=== PATIENT | female | born 1955 | race Two or more races ===

== ENCOUNTER → 2016-06-27 | Outpatient (CLI) | payer MEDICARE, OTHER ==
[~2016-06-27] VITALS: Ht 165.1 cm; Wt 83.9 kg
[~2016-06-27] MED LIST: ALEN70SO OR; CARV6.2551 PO; FURO40TA4 PO; GABA-339 PO; IND25C PO; LISI2.5T47 PO; OMEP20CA5 OR; POTA10TA51 PO; PRAV20TA3 PO; TOPI50CA OR
[2016-06-27 11:15] VITALS: BP 120/72
[2016-06-27 16:47] LABS: Basophils # (auto) 0 uL; Basophils % (auto) 0.7 % (0.0-2.0); Eosinophils # (auto) 0.3 uL; Eosinophils % (auto) 4.3 % (0.0-7.0); Hematocrit 38.5 % (36.0-46.0); Hemoglobin 12.1 g/dL (12.2-16.2); Lymphocytes # (auto) 2.8 uL; Lymphocytes % (auto) 43.9 % (10.0-50.0); Mean Corpuscular Hemoglobin 29.1 pg (28.0-32.0); Mean Corpuscular Hgb Conc. 31.5 g/dL (32.0-36.0); Mean Corpuscular Volume 92.4 fL (80.0-100.0); Mean Platelet Volume 8.9 fL (7.4-10.4); Monocytes # (auto) 0.5 uL; Monocytes % (auto) 8.2 % (0.0-12.0); Neutrophils # (auto) 2.7 uL; Neutrophils % (auto) 42.9 % (37.0-80.0); Platelet Count (auto) 270 10^3/uL (140-450); Red Cell Distribution Width 14.6 % (11.6-16.0); White Blood Cell 6.3 10^3/uL (4.4-10.8)
[2016-06-27 17:10] LABS: INR 1.02 (0.9-1.15); Prothrombin Time 10.5 sec (9.37-12.3)
[2016-06-27 17:33] LABS: BUN/Creatinine Ratio 22.2; Calcium 9.1 mg/dL (8.5-10.1); Potassium 3.8 mmol/L (3.5-5.1)
== END | disposition home or self-care (01) ==
LOC: Rad HDHVI 10:54
PROVIDERS: ATTEND Internal Medicine Cardiovascular Disease
DX: I10 Essential (primary) hypertension (principal); D64.9 Anemia, unspecified; R79.1 Abnormal coagulation profile
CPT/HCPCS: 36415; 71020; 80048; 85025; 85610; 85730; 93005; G0463

== ENCOUNTER → 2016-09-21 | Outpatient (CLI) | payer MEDICARE, OTHER ==
[2016-09-21 12:13] LABS: Basophils # (auto) 0 uL; Basophils % (auto) 0.8 % (0.0-2.0); Eosinophils # (auto) 0.4 uL; Eosinophils % (auto) 6.7 % (0.0-7.0); Hemoglobin 12.7 g/dL (12.2-16.2); Lymphocytes # (auto) 2.2 uL; Mean Corpuscular Hemoglobin 29.8 pg (28.0-32.0); Mean Corpuscular Hgb Conc. 32.5 g/dL (32.0-36.0); Mean Corpuscular Volume 91.7 fL (80.0-100.0); Mean Platelet Volume 8.2 fL (7.4-10.4); Monocytes # (auto) 0.5 uL; Monocytes % (auto) 9.4 % (0.0-12.0); Neutrophils # (auto) 2.6 uL; Neutrophils % (auto) 45.1 % (37.0-80.0); Platelet Count (auto) 299 10^3/uL (140-450); White Blood Cell 5.8 10^3/uL (4.4-10.8)
[2016-09-21 12:41] LABS: Albumin 3.6 g/dL (3.4-5.0); BUN/Creatinine Ratio 17.2; Bilirubin, Direct 0.2 mg/dL (0-0.2); Bilirubin, Total 0.4 mg/dL (0.2-1.0); Calcium 9.1 mg/dL (8.5-10.1); Potassium 4.1 mmol/L (3.5-5.1); Total Protein 7.8 g/dL (6.4-8.2)
== END | disposition home or self-care (01) ==
LOC: Rad HDHVI 08:01
PROVIDERS: ATTEND Internal Medicine Cardiovascular Disease
DX: I10 Essential (primary) hypertension (principal); E78.00 Pure hypercholesterolemia, unspecified; K74.1 Hepatic sclerosis; E11.9 Type 2 diabetes mellitus without complications; E03.9 Hypothyroidism, unspecified; D64.9 Anemia, unspecified; E55.9 Vitamin D deficiency, unspecified
CPT/HCPCS: 36415; 80048; 80061; 80076; 82306; 83036; 84443; 85025; 93306

== ENCOUNTER → 2016-10-21 | Outpatient (CLI) | payer MEDICARE, OTHER ==
[~2016-10-21] VITALS: Ht 162.6 cm; Wt 83.0 kg
[~2016-10-21] MED LIST changes: -OMEP20CA5 OR; +OMEP20CA74 OR
== END | disposition home or self-care (01) ==
LOC: Rad HDHVI 08:21
PROVIDERS: ATTEND Internal Medicine Cardiovascular Disease
DX: I10 Essential (primary) hypertension (principal); I47.2 Ventricular tachycardia; Z95.0 Presence of cardiac pacemaker
CPT/HCPCS: 78452; 93017; 96374; A9500

== ENCOUNTER → 2017-03-20 | Outpatient (CLI) | payer MEDICARE, OTHER ==
[2017-03-20 13:06] LABS: Basophils # (auto) 0.1 uL; Basophils % (auto) 0.9 % (0.0-2.0); Eosinophils # (auto) 0.4 uL; Eosinophils % (auto) 6.5 % (0.0-7.0); Hematocrit 38.9 % (36.0-46.0); Hemoglobin 12.8 g/dL (12.2-16.2); Lymphocytes # (auto) 2.3 uL; Lymphocytes % (auto) 40.5 % (10.0-50.0); Mean Corpuscular Hemoglobin 30.5 pg (28.0-32.0); Mean Corpuscular Hgb Conc. 32.8 g/dL (32.0-36.0); Mean Corpuscular Volume 93.1 fL (80.0-100.0); Mean Platelet Volume 8.4 fL (6.9-10.8); Monocytes # (auto) 0.4 uL; Monocytes % (auto) 7.8 % (0.0-12.0); Neutrophils # (auto) 2.5 uL; Neutrophils % (auto) 44.3 % (37.0-80.0); Nucleated Red Blood Cells % 0.2 %; Platelet Count (auto) 261 10^3/uL (140-450); White Blood Cell 5.7 10^3/uL (4.4-10.8)
[2017-03-20 13:08] LABS: Urine Bilirubin Negative (Negative); Urine Blood Negative /uL (Negative); Urine Color Yellow (Yellow); Urine Glucose Normal (Normal); Urine Ketone Negative (Negative); Urine Nitrite Negative (Negative); Urine Urobilinogen Normal (Negative)
[2017-03-20 13:18] LABS: Temperature: 24.3 C (20.0-25.0)
[2017-03-20 13:27] LABS: Albumin 3.8 g/dL (3.4-5.0); BUN/Creatinine Ratio 16.3; Bilirubin, Direct 0.2 mg/dL (0-0.2); Bilirubin, Total 0.5 mg/dL (0.2-1.0); Calcium 9.3 mg/dL (8.5-10.1); Potassium 3.6 mmol/L (3.5-5.1)
== END | disposition home or self-care (01) ==
LOC: Rad HDHVI 08:47
PROVIDERS: ATTEND Internal Medicine Cardiovascular Disease
DX: E11.9 Type 2 diabetes mellitus without complications (principal); I50.42 Chronic combined systolic (congestive) and diastolic (congestive) heart failure; E78.00 Pure hypercholesterolemia, unspecified; K74.1 Hepatic sclerosis; E03.9 Hypothyroidism, unspecified; D64.9 Anemia, unspecified; E55.9 Vitamin D deficiency, unspecified; N39.0 Urinary tract infection, site not specified; D51.9 Vitamin B12 deficiency anemia, unspecified; E61.1 Iron deficiency
CPT/HCPCS: 36415; 80048; 80061; 80076; 81003; 82306; 82607; 82746; 83036; 83540; 83550; 84443; 85025; 93306

== ENCOUNTER → 2017-10-11 | Outpatient (CLI) | payer MEDICARE, OTHER ==
[~2017-10-11] MED LIST changes: +ALEN70TA55 PO; +GABA800T97 PO; +LISI-275 PO; +OMEP20TA PO; +TOPI1CAP22 OR; -TOPI50CA OR; +TOPI50TA53 PO
== END | disposition home or self-care (01) ==
LOC: Rad HDHVI 10:49
PROVIDERS: ATTEND Internal Medicine Cardiovascular Disease
DX: M19.012 Primary osteoarthritis, left shoulder (principal)
CPT/HCPCS: 73200

== ENCOUNTER → 2017-10-20 | Outpatient (CLI) | payer MEDICARE, OTHER | END | disposition home or self-care (01) | LOC: Rad HDHVI 14:54 | PROVIDERS: ATTEND Internal Medicine Cardiovascular Disease | DX: I25.5 Ischemic cardiomyopathy (principal); E03.9 Hypothyroidism, unspecified; I11.0 Hypertensive heart disease with heart failure; I50.23 Acute on chronic systolic (congestive) heart failure; I34.0 Nonrheumatic mitral (valve) insufficiency; E11.9 Type 2 diabetes mellitus without complications | CPT/HCPCS: 93306 ==

== ENCOUNTER → 2017-11-01 | Outpatient (CLI) | payer MEDICARE, OTHER ==
[2017-11-01 09:07] VITALS: BP 113/64
[2017-11-01 09:40] VITALS: BP 108/61
[2017-11-01 12:11] LABS: Basophils # (auto) 0 uL; Basophils % (auto) 0.5 % (0.0-2.0); Eosinophils # (auto) 0.1 uL; Eosinophils % (auto) 1.6 % (0.0-7.0); Hematocrit 38.5 % (36.0-46.0); Hemoglobin 12.8 g/dL (12.2-16.2); Lymphocytes # (auto) 2.8 uL; Lymphocytes % (auto) 33.1 % (10.0-50.0); Mean Corpuscular Hemoglobin 30.7 pg (28.0-32.0); Mean Corpuscular Hgb Conc. 33.1 g/dL (32.0-36.0); Mean Corpuscular Volume 92.7 fL (80.0-100.0); Monocytes # (auto) 0.7 uL; Monocytes % (auto) 8.7 % (0.0-12.0); Neutrophils # (auto) 4.7 uL; Neutrophils % (auto) 56.1 % (37.0-80.0); Nucleated Red Blood Cells % 0.2 %; Platelet Count (auto) 294 10^3/uL (140-450); Red Blood Cells 4.16 10^6/uL (4.0-5.20); Red Cell Distribution Width 14.4 % (11.8-14.3); White Blood Cell 8.4 10^3/uL (4.4-10.8)
[2017-11-01 12:16] LABS: BUN/Creatinine Ratio 18.8; Calcium 8.7 mg/dL (8.5-10.1); Potassium 3.5 mmol/L (3.5-5.1)
[2017-11-01 12:22] LABS: INR 0.95 (0.9-1.15); Partial Thromboplastin Time 28.2 sec (23.78-33.04); Prothrombin Time 10.2 sec (9.27-12.13)
== END | disposition home or self-care (01) ==
LOC: Rad HDHVI 08:55
PROVIDERS: ATTEND Internal Medicine Cardiovascular Disease
DX: Z01.818 Encounter for other preprocedural examination (principal); E03.9 Hypothyroidism, unspecified; I11.0 Hypertensive heart disease with heart failure; I50.9 Heart failure, unspecified; E11.9 Type 2 diabetes mellitus without complications
CPT/HCPCS: 36415; 71046; 80048; 85025; 85610; 85730; 93005; G0463

== ENCOUNTER 2017-11-02 08:53 | Day surgery (SDC) | payer MEDICARE, OTHER ==
[~2017-11-02] VITALS: Ht 165.1 cm; Wt 84.0 kg
[~2017-11-02 08:53] MED LIST changes: -ALEN70SO OR; -GABA-339 PO; -LISI2.5T47 PO; -OMEP20CA74 OR; -TOPI1CAP22 OR
[2017-11-02] MEDS ORDERED: NALOXONE HCL 0.4 MG/ML VIAL IV ONE (09:30)
[2017-11-02] MEDS ORDERED: fentaNYL CITRATE 100 MCG/2 ML VL IV ONE (09:30)
[2017-11-02] MEDS ORDERED: MIDAZOLAM HCL 1MG/1ML-2 ML VIAL IV ONE (09:30)
[2017-11-02] MEDS ORDERED: FLUMAZENIL 0.1 MG/ML INJ 10ML MDV IV ONE (09:30)
[2017-11-02] MEDS ORDERED: LIDOCAINE 2%HCL (LOCAL ANESTH.) INJ 20ML MDV ONE (10:12)
[2017-11-02] MEDS ORDERED: IODIXANOL 320MG/ML 100ML BTL IV ONE (10:12)
[2017-11-02] MEDS ORDERED: fentaNYL CITRATE 100 MCG/2 ML VL ONE (11:13)
[2017-11-02] MEDS ORDERED: VERAPAMIL 2.5MG/ML INJ 2ML VIAL IV ONE (11:13)
[2017-11-02] MEDS ORDERED: HEPARIN 1,000 UNITS/ml 1ML VIAL ONE (11:45)
== END 2017-11-02 14:00 | disposition home or self-care (01) ==
LOC: CATH 08:53
PROVIDERS: ATTEND Internal Medicine Cardiovascular Disease
DX: I34.0 Nonrheumatic mitral (valve) insufficiency (principal); I07.1 Rheumatic tricuspid insufficiency; I42.0 Dilated cardiomyopathy; E66.9 Obesity, unspecified; I50.9 Heart failure, unspecified; F41.9 Anxiety disorder, unspecified; F32.9 Major depressive disorder, single episode, unspecified; J40 Bronchitis, not specified as acute or chronic; I10 Essential (primary) hypertension; E78.5 Hyperlipidemia, unspecified; G43.909 Migraine, unspecified, not intractable, without status migrainosus; G62.9 Polyneuropathy, unspecified; Z88.2 Allergy status to sulfonamides; Z88.8 Allergy status to other drugs, medicaments and biological substances; Z90.710 Acquired absence of both cervix and uterus; Z87.891 Personal history of nicotine dependence; Z79.891 Long term (current) use of opiate analgesic
CPT/HCPCS: 93312; C1769; C1894; J1644; J2250; J3010; J7030; Q9967; 93458; 99152; 99153

== ENCOUNTER → 2018-01-26 | Outpatient (CLI) | payer MEDICARE, OTHER ==
[2018-01-26 12:15] LABS: Urine Blood Negative /uL (Negative); Urine Specific Gravity 1.006 (1.001-1.035)
[2018-01-26 12:17] LABS: Basophils # (auto) 0.1 uL; Basophils % (auto) 0.8 % (0.0-2.0); Eosinophils # (auto) 0.1 uL; Eosinophils % (auto) 1.4 % (0.0-7.0); Hemoglobin 12.8 g/dL (12.2-16.2); Lymphocytes # (auto) 2.4 uL; Lymphocytes % (auto) 37.5 % (10.0-50.0); Mean Corpuscular Hemoglobin 31.1 pg (28.0-32.0); Mean Corpuscular Hgb Conc. 33.7 g/dL (32.0-36.0); Mean Corpuscular Volume 92.2 fL (80.0-100.0); Monocytes # (auto) 0.5 uL; Monocytes % (auto) 7.6 % (0.0-12.0); Neutrophils # (auto) 3.4 uL; Neutrophils % (auto) 52.7 % (37.0-80.0); Nucleated Red Blood Cells % 0.3 %; Platelet Count (auto) 298 10^3/uL (140-450); Red Blood Cells 4.12 10^6/uL (4.0-5.20); Red Cell Distribution Width 14.1 % (11.8-14.3); White Blood Cell 6.5 10^3/uL (4.4-10.8)
[2018-01-26 12:39] LABS: Free T4 (Free Thyroxine) 1.29 ng/dL (0.89-1.76)
[2018-01-26 12:46] LABS: Albumin 3.7 g/dL (3.4-5.0); BUN/Creatinine Ratio 17.6; Bilirubin, Total 0.5 mg/dL (0.2-1.0); Potassium 3.8 mmol/L (3.5-5.1); Total Protein 7.6 g/dL (6.4-8.2)
== END | disposition home or self-care (01) ==
LOC: LAB 09:13
PROVIDERS: ATTEND Internal Medicine Cardiovascular Disease
DX: Z00.01 Encounter for general adult medical examination with abnormal findings (principal); E03.9 Hypothyroidism, unspecified; E11.9 Type 2 diabetes mellitus without complications; E55.9 Vitamin D deficiency, unspecified; D51.9 Vitamin B12 deficiency anemia, unspecified; N39.0 Urinary tract infection, site not specified; I10 Essential (primary) hypertension
CPT/HCPCS: 36415; 80053; 80061; 81003; 82306; 82607; 83036; 84439; 84443; 85025; 87086; 87088; 87186

== ENCOUNTER → 2019-01-02 | Outpatient (CLI) | payer MEDICARE ==
[~2019-01-02] MED LIST changes: +ALEN1TAB32 PO; -ALEN70TA55 PO
== END | disposition home or self-care (01) ==
LOC: Rad HDHVI 09:41
PROVIDERS: ATTEND Internal Medicine Cardiovascular Disease
DX: I67.2 Cerebral atherosclerosis (principal); J34.2 Deviated nasal septum; I67.82 Cerebral ischemia
CPT/HCPCS: 70450; 70486

== ENCOUNTER → 2019-05-24 | Outpatient (CLI) | payer MEDICARE ==
[~2019-05-24] MED LIST changes: -IND25C PO; +INDO25CA17 PO; +IOHEXOL 350 MG/ML 100ML IJ ONE; +READI-CAT 2 (BARIUM SULF)(VANILLA SMOOTHIE) 450ML ONE
[2019-05-24 09:30] VITALS: BP 110/69
--- NOTE | 2019-05-24 09:30 | NUR ---
IV insertion IV access obtained, via clean sterile technique by inserting 22 gauge catheter at after attempt(s). IV secured properly. No trauma to site. Patient tolerated procedure well.
--- NOTE | 2019-05-24 10:50 | NUR ---
IV removal IV DC'd with sterile technique, catheter fully intact. Pressure dressing applied to site. Patient tolerated procedure well. Discharged with aftercare instructions per MD. NOTE:
[2019-05-24 10:51] VITALS: BP 131/48
--- NOTE | 2019-05-24 10:51 | NUR ---
Discharge Instructions See e-MAR for any mediations given with this visit. Patient education given on disease process. Patient verbalized understanding. Previous labs reviewed. Patient discharged in stable condition with after care instructions and follow up appointment.
== END | disposition home or self-care (01) ==
LOC: Rad HDHVI 09:21
PROVIDERS: ATTEND Internal Medicine Cardiovascular Disease
DX: I70.0 Atherosclerosis of aorta (principal); R19.5 Other fecal abnormalities; R94.4 Abnormal results of kidney function studies; R42 Dizziness and giddiness; G47.30 Sleep apnea, unspecified; I51.7 Cardiomegaly; I50.9 Heart failure, unspecified; I47.2 Ventricular tachycardia; T82.897A Other specified complication of cardiac prosthetic devices, implants and grafts, initial encounter; R10.9 Unspecified abdominal pain
CPT/HCPCS: 36415; 82565; 87045; 87427; G0463; Q9967; 74177

== ENCOUNTER → 2019-11-19 | Outpatient (CLI) | payer MEDICARE ==
[~2019-11-19] MED LIST changes: +FERR27TA2 PO; -IOHEXOL 350 MG/ML 100ML IJ ONE; -READI-CAT 2 (BARIUM SULF)(VANILLA SMOOTHIE) 450ML ONE
== END | disposition home or self-care (01) ==
LOC: Rad HDHVI 10:05
PROVIDERS: ATTEND Internal Medicine Cardiovascular Disease
DX: Z01.810 Encounter for preprocedural cardiovascular examination (principal); I42.0 Dilated cardiomyopathy; I50.43 Acute on chronic combined systolic (congestive) and diastolic (congestive) heart failure
CPT/HCPCS: 93306

== ENCOUNTER 2020-01-15 10:50 | Inpatient (IN) | payer MEDICARE ==
[~2020-01-15] VITALS: Ht 162.6 cm; Wt 77.4 kg
[~2020-01-15 10:50] MED LIST changes: -FERR27TA2 PO
[2020-01-15 11:57] VITALS: BP 120/84
[2020-01-15] MEDS ORDERED: OMNIPAQUE ORAL SOLN 500ml 12mg/ml PO ONE (12:11)
[2020-01-15 13:00] VITALS: BP 120/84
[2020-01-15 13:36] LABS: Basophils # (auto) 0 10 ^3/uL (0-0.2); Basophils % (auto) 0.5 % (0.0-2.0); Eosinophils # (auto) 0.3 10 ^3/uL (0-0.8); Hematocrit 34.8 % (36.0-46.0); Hemoglobin 11.4 g/dL (12.2-16.2); Lymphocytes # (auto) 1.9 10 ^3/uL (0.4-5.4); Lymphocytes % (auto) 25.7 % (10.0-50.0); Mean Corpuscular Hemoglobin 29.1 pg (28.0-32.0); Mean Corpuscular Hgb Conc. 32.8 g/dL (32.0-36.0); Mean Corpuscular Volume 88.7 fL (80.0-100.0); Monocytes # (auto) 0.7 10 ^3/uL (0-1.3); Monocytes % (auto) 9.9 % (0.0-12.0); Neutrophils # (auto) 4.4 10 ^3/uL (1.6-8.6); Neutrophils % (auto) 59.9 % (37.0-80.0); Platelet Count (auto) 318 10^3/uL (140-450); Red Blood Cells 3.92 10^6/uL (4.0-5.20); Red Cell Distribution Width 14.5 % (11.8-14.3); White Blood Cell 7.4 10^3/uL (4.4-10.8)
[2020-01-15 13:42] LABS: Urine Bacteria MANY /hpf (None Seen); Urine Blood 3+ /uL (Negative); Urine Specific Gravity 1.006 (1.001-1.035); Urine Sperm PRESENT /hpf (None Seen); Urine WBC 96 /hpf (0 - 5); Urine WBC Clumps PRESENT /hpf (None Seen)
[2020-01-15 13:43] LABS: INR 1.06 (0.9-1.15)
[2020-01-15] MEDS ORDERED: TPN PER PHARMACY 0 ML IV SCH (13:45)
[2020-01-15 13:49] LABS: Calcium 9.1 mg/dL (8.5-10.1)
[2020-01-15 13:55] LABS: Albumin 2.9 g/dL (3.4-5.0); BUN/Creatinine Ratio 14.7; Bilirubin, Total 0.3 mg/dL (0.2-1.0); Total Protein 7.2 g/dL (6.4-8.2)
[2020-01-15] MEDS ORDERED: FERR27TA2 PO (13:55)
[2020-01-15] MEDS ORDERED: PRAV20TA3 PO (13:55)
[2020-01-15 14:39] LABS: Magnesium 2.6 mg/dL (1.6-2.6); Phosphorus 3.8 mg/dL (2.5-4.90)
[2020-01-15] MEDS: POTASSIUM CHL 20MEQ/100ML 100 ML IV SCH ×2 (14:53→17:37)
[2020-01-15] MEDS: PIPERACILLIN-TAZO 4.5GM 100 ML IV SCH ×2 (15:34→23:59)
[2020-01-15] MEDS ORDERED: IOTHALAMATE MEGLUMINE INJ 250ML BOT UR ONE (16:17)
[2020-01-15 17:09] VITALS: BP 136/83
[2020-01-15] MEDS ORDERED: POTASSIUM CHL 20MEQ/100ML 100 ML IV SCH (20:00)
[2020-01-15] MEDS ORDERED: CLINIMIX PER PHARMACY IV NR (20:00)
[2020-01-15 22:00] VITALS: BP 122/63
[2020-01-16] MEDS ORDERED: DEXTROSE (50%) 50ML SYRG IV SCH
[2020-01-16 05:24] VITALS: BP 128/67
[2020-01-16] MEDS: InsuLIN REG 1unit/0.01ml Soln (100units/ml) SC SCH ×5 (06:00→23:57)
[2020-01-16] MEDS: PIPERACILLIN-TAZO 4.5GM 100 ML IV SCH ×3 (06:08→21:52)
[2020-01-16] MEDS: ACCU-CHEK COMFORT CURVE STRIP VI SCH ×5 (06:09→23:56)
[2020-01-16 06:34] LABS: Albumin 2.7 g/dL (3.4-5.0); Calcium 8.6 mg/dL (8.5-10.1); Magnesium 2.6 mg/dL (1.6-2.6); Potassium 3.5 mmol/L (3.5-5.1)
[2020-01-16 06:37] LABS: BUN/Creatinine Ratio 12.9; Bilirubin, Total 0.4 mg/dL (0.2-1.0); Phosphorus 3.1 mg/dL (2.5-4.90); Total Protein 7.1 g/dL (6.4-8.2)
[2020-01-16 09:00] VITALS: BP 126/74
[2020-01-16] MEDS ORDERED: POTASSIUM CHL 20MEQ/100ML 100 ML IV ONE (11:30)
[2020-01-16 12:46] VITALS: BP 120/61
[2020-01-16 16:29] VITALS: BP 142/84
[2020-01-16] MEDS ORDERED: TPN PER PHARMACY IV NR ×9 (20:00)
[2020-01-16] MEDS: PRAVASTATIN SODIUM 20 MG TAB PO SCH (21:30)
[2020-01-16] MEDS: CARVEDILOL 3.125 MG TAB PO SCH (21:31)
[2020-01-16] MEDS: INDOMETHACIN 25 MG CAP PO SCH (21:31)
[2020-01-16] MEDS: GABAPENTIN 400 MG CAP PO SCH (21:32)
[2020-01-16] MEDS: POTASSIUM CHL 20 Meq TABLET PO SCH (21:34)
[2020-01-16 22:00] VITALS: BP 137/73
[2020-01-16] MEDS: SODIUM CHLORIDE 0.9% 1,000 ML IV SCH (22:16)
[2020-01-16] MEDS: HYDROmorphone HCL 2 MG/ML VL IV PRN (22:32)
[2020-01-16] MEDS: METOCLOPRAMIDE HCL 5MG/ml INJ 2ml VIAL IV PRN (22:33)
[2020-01-17 05:00] VITALS: BP 135/75
[2020-01-17] MEDS: InsuLIN REG 1unit/0.01ml Soln (100units/ml) SC SCH ×4 (06:00→23:32)
[2020-01-17 06:04] LABS: Albumin 2.6 g/dL (3.4-5.0); Calcium 8.6 mg/dL (8.5-10.1); Magnesium 2.3 mg/dL (1.6-2.6); Potassium 3.1 mmol/L (3.5-5.1)
[2020-01-17 06:07] LABS: BUN/Creatinine Ratio 16.4; Bilirubin, Total 0.2 mg/dL (0.2-1.0); Phosphorus 3.8 mg/dL (2.5-4.90); Total Protein 6.8 g/dL (6.4-8.2)
[2020-01-17] MEDS: PIPERACILLIN-TAZO 4.5GM 100 ML IV SCH ×3 (06:28→23:16)
[2020-01-17] MEDS: FUROSEMIDE 40 MG TAB PO SCH ×2 (06:29→17:55)
[2020-01-17] MEDS: ACCU-CHEK COMFORT CURVE STRIP VI SCH ×4 (06:30→23:32)
[2020-01-17 09:00] VITALS: BP 122/72
[2020-01-17] MEDS ORDERED: POTASSIUM CHL 20MEQ/100ML 100 ML IV ONE (09:30)
[2020-01-17] MEDS: CARVEDILOL 3.125 MG TAB PO SCH ×2 (10:00→23:04)
[2020-01-17] MEDS: INDOMETHACIN 25 MG CAP PO SCH ×2 (10:08→23:05)
[2020-01-17] MEDS: POTASSIUM CHL 20 Meq TABLET PO SCH ×2 (10:08→23:05)
[2020-01-17] MEDS: GABAPENTIN 400 MG CAP PO SCH ×2 (10:08→23:06)
[2020-01-17] MEDS: ERTAPENEM SOD INJ 1 GM in SODIUM CHL 0.9% 50 ML IV SCH (11:56)
[2020-01-17 13:00] VITALS: BP 143/68
[2020-01-17] MEDS: SODIUM CHLORIDE 0.9% 1,000 ML IV SCH (16:09)
[2020-01-17 16:25] VITALS: BP 135/83
[2020-01-17] MEDS ORDERED: TPN PER PHARMACY IV NR ×10 (20:00)
[2020-01-17 22:00] VITALS: BP 128/68
[2020-01-17] MEDS: HYDROmorphone HCL 2 MG/ML VL IV PRN (23:03)
[2020-01-17] MEDS: METOCLOPRAMIDE HCL 5MG/ml INJ 2ml VIAL IV PRN (23:03)
[2020-01-17] MEDS: PRAVASTATIN SODIUM 20 MG TAB PO SCH (23:07)
[2020-01-18 05:00] VITALS: BP 128/75
[2020-01-18] MEDS: PIPERACILLIN-TAZO 4.5GM 100 ML IV SCH (05:38)
[2020-01-18] MEDS: FUROSEMIDE 40 MG TAB PO SCH ×2 (05:38→18:03)
[2020-01-18] MEDS: InsuLIN REG 1unit/0.01ml Soln (100units/ml) SC SCH ×3 (05:39→18:00)
[2020-01-18] MEDS: ACCU-CHEK COMFORT CURVE STRIP VI SCH ×3 (05:39→17:56)
[2020-01-18 06:52] LABS: Albumin 2.6 g/dL (3.4-5.0); Potassium 3.4 mmol/L (3.5-5.1)
[2020-01-18 07:00] LABS: BUN/Creatinine Ratio 14.8; Bilirubin, Total 0.2 mg/dL (0.2-1.0); Magnesium 2.2 mg/dL (1.6-2.6); Phosphorus 3.9 mg/dL (2.5-4.90); Total Protein 6.8 g/dL (6.4-8.2)
[2020-01-18 07:53] VITALS: BP 115/57
[2020-01-18 08:00] VITALS: BP 115/57
[2020-01-18] MEDS ORDERED: POTASSIUM CHL 20MEQ/100ML 100 ML IV ONE (10:15)
[2020-01-18] MEDS: INDOMETHACIN 25 MG CAP PO SCH ×2 (10:24→23:53)
[2020-01-18] MEDS: GABAPENTIN 400 MG CAP PO SCH ×2 (10:24→23:53)
[2020-01-18] MEDS: POTASSIUM CHL 20 Meq TABLET PO SCH ×2 (10:24→23:54)
[2020-01-18] MEDS: ERTAPENEM SOD INJ 1 GM in SODIUM CHL 0.9% 50 ML IV SCH (10:25)
[2020-01-18] MEDS: CARVEDILOL 3.125 MG TAB PO SCH ×2 (10:25→22:00)
[2020-01-18] MEDS: SODIUM CHLORIDE 0.9% 1,000 ML IV SCH (11:00)
[2020-01-18] MEDS: HYDROmorphone HCL 2 MG/ML VL IV PRN (11:02)
[2020-01-18 12:00] VITALS: BP 134/82
[2020-01-18 16:00] VITALS: BP 134/76
[2020-01-18] MEDS: METOCLOPRAMIDE HCL 5MG/ml INJ 2ml VIAL IV PRN (16:03)
[2020-01-18] MEDS ORDERED: TPN PER PHARMACY IV NR ×10 (20:00)
[2020-01-18 21:00] VITALS: BP 143/81
[2020-01-18] MEDS: PRAVASTATIN SODIUM 20 MG TAB PO SCH (23:54)
[2020-01-19] VITALS (7 sets, daily range): BP systolic 117–144; BP diastolic 60–71
[2020-01-19] MEDS: ACCU-CHEK COMFORT CURVE STRIP VI SCH ×5 (00:03→23:54)
[2020-01-19] MEDS: InsuLIN REG 1unit/0.01ml Soln (100units/ml) SC SCH ×5 (06:00→23:54)
[2020-01-19] MEDS: FUROSEMIDE 40 MG TAB PO SCH ×2 (06:18→18:41)
[2020-01-19 07:53] LABS: Calcium 8.9 mg/dL (8.5-10.1); Magnesium 2.4 mg/dL (1.6-2.6); Potassium 3.5 mmol/L (3.5-5.1)
[2020-01-19 07:57] LABS: BUN/Creatinine Ratio 22.4; Bilirubin, Total 0.2 mg/dL (0.2-1.0); Phosphorus 3.4 mg/dL (2.5-4.90); Total Protein 7.8 g/dL (6.4-8.2)
[2020-01-19] MEDS: POTASSIUM CHL 20 Meq TABLET PO SCH ×2 (09:58→21:35)
[2020-01-19] MEDS: CARVEDILOL 3.125 MG TAB PO SCH ×2 (09:58→21:35)
[2020-01-19] MEDS: GABAPENTIN 400 MG CAP PO SCH ×2 (09:58→21:33)
[2020-01-19] MEDS: INDOMETHACIN 25 MG CAP PO SCH ×2 (09:59→21:36)
[2020-01-19] MEDS: SODIUM CHLORIDE 0.9% 1,000 ML IV SCH (10:00)
[2020-01-19] MEDS: ERTAPENEM SOD INJ 1 GM in SODIUM CHL 0.9% 50 ML IV SCH (10:13)
[2020-01-19] MEDS: METOCLOPRAMIDE HCL 5MG/ml INJ 2ml VIAL IV PRN (11:31)
[2020-01-19] MEDS: HYDROmorphone HCL 2 MG/ML VL IV PRN ×2 (11:32→21:37)
[2020-01-19] MEDS ORDERED: VANCOMYCIN HCL 125MG/5ML ORAL SOL GT SCH (12:00)
[2020-01-19] MEDS ORDERED: MAGNESIUM CITRATE SOLUTION 300 ML BTL PO ONE (12:00)
[2020-01-19] MEDS: VANCOMYCIN HCL 125MG/5ML ORAL SOL PO SCH ×3 (14:30→23:53)
[2020-01-19] MEDS ORDERED: TPN PER PHARMACY IV NR ×10 (20:00)
[2020-01-19] MEDS: PRAVASTATIN SODIUM 20 MG TAB PO SCH (21:35)
[2020-01-19] MEDS: ONDANSETRON HCL 4 MG/2 ML VIAL IV PRN (21:37)
[2020-01-20] MEDS: SODIUM CHLORIDE 0.9% 1,000 ML IV SCH ×2 (03:00→21:13)
[2020-01-20 05:00] VITALS: BP 142/66
[2020-01-20] MEDS: VANCOMYCIN HCL 125MG/5ML ORAL SOL PO SCH ×3 (05:45→18:30)
[2020-01-20] MEDS: ACCU-CHEK COMFORT CURVE STRIP VI SCH ×3 (05:46→18:27)
[2020-01-20] MEDS: FUROSEMIDE 40 MG TAB PO SCH ×2 (05:46→18:43)
[2020-01-20] MEDS: InsuLIN REG 1unit/0.01ml Soln (100units/ml) SC SCH ×3 (05:46→18:00)
[2020-01-20 06:37] LABS: Albumin 2.7 g/dL (3.4-5.0); Calcium 8.6 mg/dL (8.5-10.1); Potassium 3.6 mmol/L (3.5-5.1)
[2020-01-20 06:42] LABS: BUN/Creatinine Ratio 21.7; Bilirubin, Total 0.2 mg/dL (0.2-1.0); Magnesium 2.7 mg/dL (1.6-2.6); Phosphorus 4.3 mg/dL (2.5-4.90)
[2020-01-20 08:00] VITALS: BP 122/79
[2020-01-20 09:00] VITALS: BP 122/79
[2020-01-20] MEDS: POTASSIUM CHL 20 Meq TABLET PO SCH ×2 (10:00→21:11)
[2020-01-20] MEDS: CARVEDILOL 3.125 MG TAB PO SCH ×2 (10:00→21:10)
[2020-01-20] MEDS: ERTAPENEM SOD INJ 1 GM in SODIUM CHL 0.9% 50 ML IV SCH (10:00)
[2020-01-20] MEDS: INDOMETHACIN 25 MG CAP PO SCH ×2 (10:00→21:11)
[2020-01-20] MEDS: GABAPENTIN 400 MG CAP PO SCH ×2 (10:00→21:12)
[2020-01-20] MEDS ORDERED: SODIUM CHLORIDE LOCK 10 ML ONE (12:24)
[2020-01-20] MEDS ORDERED: MIDAZOLAM HCL 1MG/1ML-2 ML VIAL ONE (12:24)
[2020-01-20] MEDS ORDERED: fentaNYL CITRATE 100 MCG/2 ML VL ONE (12:24)
[2020-01-20] MEDS ORDERED: PROPOFOL 10 MG/ML 20 ML IV ONE (12:24)
[2020-01-20] MEDS ORDERED: ONDANSETRON HCL 4 MG/2 ML VIAL ONE (12:24)
[2020-01-20 16:38] VITALS: BP 115/62
[2020-01-20] MEDS ORDERED: TPN PER PHARMACY IV NR ×9 (20:00)
[2020-01-20] MEDS: PRAVASTATIN SODIUM 20 MG TAB PO SCH (21:12)
[2020-01-21] MEDS: VANCOMYCIN HCL 125MG/5ML ORAL SOL PO SCH ×2 (00:20→05:35)
[2020-01-21] MEDS: ACCU-CHEK COMFORT CURVE STRIP VI SCH ×4 (00:20→18:00)
[2020-01-21 05:23] VITALS: BP 114/65
[2020-01-21] MEDS: FUROSEMIDE 40 MG TAB PO SCH ×2 (05:36→18:00)
[2020-01-21] MEDS: InsuLIN REG 1unit/0.01ml Soln (100units/ml) SC SCH ×4 (05:52→18:00)
[2020-01-21 07:00] LABS: Albumin 2.4 g/dL (3.4-5.0); Calcium 7.9 mg/dL (8.5-10.1); Potassium 3.3 mmol/L (3.5-5.1)
[2020-01-21 07:06] LABS: BUN/Creatinine Ratio 29.6; Bilirubin, Total 0.2 mg/dL (0.2-1.0); Magnesium 2.2 mg/dL (1.6-2.6); Phosphorus 3.7 mg/dL (2.5-4.90); Total Protein 6.1 g/dL (6.4-8.2)
[2020-01-21 09:00] VITALS: BP 111/66
[2020-01-21] MEDS: GABAPENTIN 400 MG CAP PO SCH ×2 (09:59→22:06)
[2020-01-21] MEDS: POTASSIUM CHL 20 Meq TABLET PO SCH ×2 (09:59→22:06)
[2020-01-21] MEDS: ERTAPENEM SOD INJ 1 GM in SODIUM CHL 0.9% 50 ML IV SCH (09:59)
[2020-01-21] MEDS: CARVEDILOL 3.125 MG TAB PO SCH ×2 (10:00→22:05)
[2020-01-21] MEDS: INDOMETHACIN 25 MG CAP PO SCH ×2 (10:01→22:06)
[2020-01-21] MEDS ORDERED: VANCOMYCIN HCL 125MG/5ML ORAL SOL PO SCH (12:00)
[2020-01-21 13:00] VITALS: BP 116/65
[2020-01-21 17:39] VITALS: BP 107/62
[2020-01-21] MEDS: SODIUM CHLORIDE 0.9% 1,000 ML IV SCH (19:00)
[2020-01-21] MEDS ORDERED: TPN PER PHARMACY IV NR ×10 (20:00)
[2020-01-21 22:00] VITALS: BP 127/61
[2020-01-21] MEDS: PRAVASTATIN SODIUM 20 MG TAB PO SCH (22:06)
[2020-01-22] VITALS (7 sets, daily range): BP systolic 116–137; BP diastolic 57–77
[2020-01-22] MEDS: InsuLIN REG 1unit/0.01ml Soln (100units/ml) SC SCH ×4 (06:00→18:00)
[2020-01-22] MEDS: ACCU-CHEK COMFORT CURVE STRIP VI SCH ×4 (06:00→18:24)
[2020-01-22] MEDS: FUROSEMIDE 40 MG TAB PO SCH ×2 (06:35→18:20)
[2020-01-22] MEDS ORDERED: GOLYTELY 4L KIT PO ONE (09:00)
[2020-01-22] MEDS: ERTAPENEM SOD INJ 1 GM in SODIUM CHL 0.9% 50 ML IV SCH (09:50)
[2020-01-22] MEDS: POTASSIUM CHL 20 Meq TABLET PO SCH ×2 (09:51→22:00)
[2020-01-22] MEDS: GABAPENTIN 400 MG CAP PO SCH ×2 (09:51→21:56)
[2020-01-22] MEDS: INDOMETHACIN 25 MG CAP PO SCH ×2 (09:51→21:55)
[2020-01-22] MEDS: CARVEDILOL 3.125 MG TAB PO SCH ×2 (09:52→21:54)
[2020-01-22 10:09] LABS: Potassium 3.4 mmol/L (3.5-5.1)
[2020-01-22 10:17] LABS: Albumin 2.9 g/dL (3.4-5.0); BUN/Creatinine Ratio 33.3; Bilirubin, Total 0.2 mg/dL (0.2-1.0); Calcium 9.1 mg/dL (8.5-10.1); Magnesium 2.4 mg/dL (1.6-2.6); Total Protein 7.2 g/dL (6.4-8.2)
[2020-01-22 15:24] LABS: Basophils # (auto) 0.1 10 ^3/uL (0-0.2); Basophils % (auto) 0.9 % (0.0-2.0); Eosinophils # (auto) 0.2 10 ^3/uL (0-0.8); Eosinophils % (auto) 2.7 % (0.0-7.0); Hematocrit 35.3 % (36.0-46.0); Hemoglobin 11.6 g/dL (12.2-16.2); Lymphocytes # (auto) 2.4 10 ^3/uL (0.4-5.4); Lymphocytes % (auto) 32.2 % (10.0-50.0); Mean Corpuscular Hgb Conc. 32.9 g/dL (32.0-36.0); Monocytes # (auto) 0.8 10 ^3/uL (0-1.3); Monocytes % (auto) 10.7 % (0.0-12.0); Neutrophils % (auto) 53.5 % (37.0-80.0); Nucleated Red Blood Cells % 0.1 %; Platelet Count (auto) 339 10^3/uL (140-450); Red Blood Cells 4.01 10^6/uL (4.0-5.20); Red Cell Distribution Width 14.6 % (11.8-14.3); White Blood Cell 7.4 10^3/uL (4.4-10.8)
[2020-01-22] MEDS: SODIUM CHLORIDE 0.9% 1,000 ML IV SCH (15:32)
[2020-01-22] MEDS: NEOMYCIN SULFATE 500 MG TAB PO SCH (18:20)
[2020-01-22 19:22] LABS: Basophils # (auto) 0.1 10 ^3/uL (0-0.2); Basophils % (auto) 0.9 % (0.0-2.0); Eosinophils # (auto) 0.2 10 ^3/uL (0-0.8); Eosinophils % (auto) 2.3 % (0.0-7.0); Hematocrit 35.8 % (36.0-46.0); Lymphocytes # (auto) 2.6 10 ^3/uL (0.4-5.4); Lymphocytes % (auto) 30.5 % (10.0-50.0); Mean Corpuscular Hemoglobin 29.5 pg (28.0-32.0); Mean Corpuscular Hgb Conc. 33.5 g/dL (32.0-36.0); Mean Corpuscular Volume 88.1 fL (80.0-100.0); Monocytes # (auto) 0.8 10 ^3/uL (0-1.3); Monocytes % (auto) 9.2 % (0.0-12.0); Neutrophils # (auto) 4.8 10 ^3/uL (1.6-8.6); Neutrophils % (auto) 57.1 % (37.0-80.0); Nucleated Red Blood Cells % 0.1 %; Platelet Count (auto) 344 10^3/uL (140-450); Red Blood Cells 4.07 10^6/uL (4.0-5.20); Red Cell Distribution Width 14.5 % (11.8-14.3); White Blood Cell 8.4 10^3/uL (4.4-10.8)
[2020-01-22 19:36] LABS: INR 1.07 (0.9-1.15)
[2020-01-22] MEDS ORDERED: TPN PER PHARMACY IV NR ×10 (20:00)
[2020-01-22] MEDS: PRAVASTATIN SODIUM 20 MG TAB PO SCH (21:56)
[2020-01-22] MEDS: ONDANSETRON HCL 4 MG/2 ML VIAL IV PRN (22:08)
[2020-01-23] MEDS ORDERED: POTASSIUM CHL 20MEQ/100ML 100 ML IV ONE
[2020-01-23] MEDS: ACCU-CHEK COMFORT CURVE STRIP VI SCH ×5 (00:29→23:35)
[2020-01-23 05:00] VITALS: BP 126/64
[2020-01-23] MEDS: InsuLIN REG 1unit/0.01ml Soln (100units/ml) SC SCH ×5 (06:00→23:34)
[2020-01-23] MEDS: NEOMYCIN SULFATE 500 MG TAB PO SCH ×4 (06:19→17:01)
[2020-01-23] MEDS: FUROSEMIDE 40 MG TAB PO SCH ×2 (06:20→17:01)
[2020-01-23 06:31] LABS: Albumin 2.7 g/dL (3.4-5.0); Calcium 8.8 mg/dL (8.5-10.1); Magnesium 2.4 mg/dL (1.6-2.6); Potassium 3.5 mmol/L (3.5-5.1)
[2020-01-23 06:36] LABS: BUN/Creatinine Ratio 36.4; Bilirubin, Total 0.3 mg/dL (0.2-1.0); Phosphorus 4.5 mg/dL (2.5-4.90); Total Protein 6.7 g/dL (6.4-8.2)
[2020-01-23] MEDS ORDERED: LIDOCAINE 1% (LOCAL ANESTH.) PF 5ml SDV ONE (07:26)
[2020-01-23] MEDS ORDERED: SUCCINYLCHOLINE CHLORIDE 20 MG/ML 10ML VIAL IV ONE (07:26)
[2020-01-23] MEDS ORDERED: MIDAZOLAM HCL 1MG/1ML-2 ML VIAL ONE (07:29)
[2020-01-23] MEDS ORDERED: ETOMIDATE (2MG/ML) 20ML VIAL IV ONE (07:30)
[2020-01-23] MEDS ORDERED: ROCURONIUM 10MG/ML 10ML VIAL IV ONE (07:31)
[2020-01-23] MEDS ORDERED: cefTRIAXone SOD 1,000 MG VL ONE (07:41)
[2020-01-23] MEDS ORDERED: SODIUM CHLORIDE LOCK 10 ML ONE (07:43)
[2020-01-23] MEDS ORDERED: fentaNYL CITRATE 100 MCG/2 ML VL ONE (08:22)
[2020-01-23] MEDS ORDERED: ONDANSETRON HCL 4 MG/2 ML VIAL IV PRN (08:45)
[2020-01-23] MEDS ORDERED: ACCU-CHEK COMFORT CURVE STRIP VI ONE (08:45)
[2020-01-23] MEDS ORDERED: NALOXONE HCL 0.4 MG/ML VIAL IV PRN (08:45)
[2020-01-23] MEDS ORDERED: HYDROmorphone HCL 2 MG/ML VL IV PRN (08:45)
[2020-01-23] MEDS ORDERED: LIDOCAINE HCL 2% TOP JELLY 5ML TOP ONE (08:50)
[2020-01-23] MEDS ORDERED: MEPERIDINE HCL (50 MG/ML) 1 ML VIAL ONE (09:12)
[2020-01-23] MEDS: GABAPENTIN 400 MG CAP PO SCH ×2 (10:00→21:28)
[2020-01-23] MEDS: CARVEDILOL 3.125 MG TAB PO SCH ×2 (10:00→21:27)
[2020-01-23] MEDS: POTASSIUM CHL 20 Meq TABLET PO SCH ×2 (10:00→21:28)
[2020-01-23] MEDS: INDOMETHACIN 25 MG CAP PO SCH ×2 (10:00→21:27)
[2020-01-23] MEDS ORDERED: NEOSTIGMINE 1 MG/ML INJ (10mg/10ML VIAL) ONE (10:14)
[2020-01-23] MEDS ORDERED: GLYCOPYRROLATE 0.2 MG/ML 1ML VIAL ONE (10:14)
[2020-01-23] MEDS ORDERED: KETOROLAC TROMETH 30 MG/ML 1ML VIAL ONE (10:16)
[2020-01-23] MEDS ORDERED: POVIDONE IODINE 10 % TOPICAL OINT 30GM TOP ONE (10:18)
[2020-01-23] MEDS: SODIUM CHLORIDE 0.9% 1,000 ML IV SCH (11:00)
[2020-01-23] MEDS: HYDROmorphone HCL 2 MG/ML VL IV PRN ×6 (11:00→23:36)
[2020-01-23] MEDS: ERTAPENEM SOD INJ 1 GM in SODIUM CHL 0.9% 50 ML IV SCH (12:42)
[2020-01-23] MEDS: ONDANSETRON HCL 4 MG/2 ML VIAL IV PRN ×3 (12:43→23:35)
[2020-01-23 12:53] VITALS: BP 112/55
[2020-01-23] MEDS: metroNIDAZOLE 500MG/100ML 100 ML IV SCH ×2 (13:59→21:28)
[2020-01-23 16:53] VITALS: BP 103/64
[2020-01-23] MEDS ORDERED: cloNIDine 0.1 mg/24hr 7 DAY PATCH TD PRN ×2 (18:30→20:15)
[2020-01-23] MEDS ORDERED: TPN PER PHARMACY IV NR ×11 (20:00)
[2020-01-23] MEDS: PRAVASTATIN SODIUM 20 MG TAB PO SCH (21:28)
[2020-01-23 22:00] VITALS: BP 118/65
[2020-01-24] MEDS: FUROSEMIDE 40 MG TAB PO SCH ×2 (05:56→17:45)
[2020-01-24] MEDS: InsuLIN REG 1unit/0.01ml Soln (100units/ml) SC SCH ×3 (05:56→17:45)
[2020-01-24] MEDS: ACCU-CHEK COMFORT CURVE STRIP VI SCH ×3 (05:56→17:45)
[2020-01-24] MEDS: SODIUM CHLORIDE 0.9% 1,000 ML IV SCH (05:57)
[2020-01-24] MEDS: HYDROmorphone HCL 2 MG/ML VL IV PRN ×4 (05:57→20:01)
[2020-01-24] MEDS: ONDANSETRON HCL 4 MG/2 ML VIAL IV PRN ×4 (05:57→20:01)
[2020-01-24 06:01] VITALS: BP 127/56
[2020-01-24] MEDS: metroNIDAZOLE 500MG/100ML 100 ML IV SCH ×2 (06:36→14:00)
[2020-01-24 06:57] LABS: Albumin 2.3 g/dL (3.4-5.0); Calcium 8.4 mg/dL (8.5-10.1); Magnesium 2.3 mg/dL (1.6-2.6); Potassium 3.8 mmol/L (3.5-5.1)
[2020-01-24 07:01] LABS: BUN/Creatinine Ratio 53.1; Bilirubin, Total 0.2 mg/dL (0.2-1.0); Phosphorus 3.2 mg/dL (2.5-4.90); Total Protein 5.8 g/dL (6.4-8.2)
[2020-01-24] MEDS: CARVEDILOL 3.125 MG TAB PO SCH ×2 (08:46→22:00)
[2020-01-24] MEDS: POTASSIUM CHL 20 Meq TABLET PO SCH ×2 (08:46→22:00)
[2020-01-24] MEDS: GABAPENTIN 400 MG CAP PO SCH ×2 (08:46→22:00)
[2020-01-24] MEDS: INDOMETHACIN 25 MG CAP PO SCH ×2 (08:46→22:00)
[2020-01-24 08:54] VITALS: BP 130/66
[2020-01-24] MEDS ORDERED: cefTRIAXone 1GM/50ML D5W 50 ML IV SCH (09:00)
[2020-01-24] MEDS: ERTAPENEM SOD INJ 1 GM in SODIUM CHL 0.9% 50 ML IV SCH (12:11)
[2020-01-24 12:50] VITALS: BP 132/64
[2020-01-24 17:00] VITALS: BP 127/62
[2020-01-24] MEDS ORDERED: TPN PER PHARMACY IV NR ×10 (20:00)
[2020-01-24 22:00] VITALS: BP 136/73
[2020-01-24] MEDS: PRAVASTATIN SODIUM 20 MG TAB PO SCH (22:00)
[2020-01-25] MEDS: ACCU-CHEK COMFORT CURVE STRIP VI SCH ×5 (00:35→23:39)
[2020-01-25] MEDS: HYDROmorphone HCL 2 MG/ML VL IV PRN ×5 (00:36→20:28)
[2020-01-25] MEDS: ONDANSETRON HCL 4 MG/2 ML VIAL IV PRN ×5 (00:36→20:28)
[2020-01-25] MEDS: SODIUM CHLORIDE 0.9% 1,000 ML IV SCH ×2 (03:00→18:43)
[2020-01-25 05:00] VITALS: BP 126/57
[2020-01-25 05:47] LABS: Albumin 2.1 g/dL (3.4-5.0); Calcium 8.5 mg/dL (8.5-10.1); Magnesium 2.2 mg/dL (1.6-2.6); Potassium 3.9 mmol/L (3.5-5.1)
[2020-01-25 05:53] LABS: BUN/Creatinine Ratio 46.7; Bilirubin, Total 0.2 mg/dL (0.2-1.0); Phosphorus 2.7 mg/dL (2.5-4.90); Pre Albumin 14.4 mg/dL (20.0-40.0); Total Protein 5.7 g/dL (6.4-8.2)
[2020-01-25] MEDS: FUROSEMIDE 40 MG TAB PO SCH ×2 (06:00→17:01)
[2020-01-25] MEDS: InsuLIN REG 1unit/0.01ml Soln (100units/ml) SC SCH ×5 (06:00→23:38)
[2020-01-25 09:00] VITALS: BP 134/67
[2020-01-25] MEDS: INDOMETHACIN 25 MG CAP PO SCH ×2 (09:35→22:00)
[2020-01-25] MEDS: POTASSIUM CHL 20 Meq TABLET PO SCH ×2 (09:35→22:00)
[2020-01-25] MEDS: CARVEDILOL 3.125 MG TAB PO SCH ×2 (09:35→22:00)
[2020-01-25] MEDS: GABAPENTIN 400 MG CAP PO SCH ×2 (09:36→22:00)
[2020-01-25] MEDS: ERTAPENEM SOD INJ 1 GM in SODIUM CHL 0.9% 50 ML IV SCH (09:37)
[2020-01-25 11:51] LABS: Urine Bacteria FEW /hpf (None Seen); Urine Blood Negative /uL (Negative); Urine Mucus FEW (None Seen); Urine Specific Gravity 1.021 (1.001-1.035); Urine WBC 3 /hpf (0 - 5)
[2020-01-25 13:00] VITALS: BP 145/85
[2020-01-25 17:00] VITALS: BP 125/77
[2020-01-25] MEDS ORDERED: TPN PER PHARMACY IV NR ×9 (20:00)
[2020-01-25 22:00] VITALS: BP 144/66
[2020-01-25] MEDS: PRAVASTATIN SODIUM 20 MG TAB PO SCH (22:00)
[2020-01-26] MEDS: HYDROmorphone HCL 2 MG/ML VL IV PRN ×4 (01:49→21:17)
[2020-01-26] MEDS: ONDANSETRON HCL 4 MG/2 ML VIAL IV PRN ×4 (01:49→21:16)
[2020-01-26 05:00] VITALS: BP 132/70
[2020-01-26] MEDS: FUROSEMIDE 40 MG TAB PO SCH ×2 (05:06→16:27)
[2020-01-26] MEDS: InsuLIN REG 1unit/0.01ml Soln (100units/ml) SC SCH ×3 (05:08→18:00)
[2020-01-26] MEDS: ACCU-CHEK COMFORT CURVE STRIP VI SCH ×3 (05:08→18:00)
[2020-01-26 08:10] LABS: Basophils # (auto) 0 10 ^3/uL (0-0.2); Basophils % (auto) 0.5 % (0.0-2.0); Eosinophils # (auto) 0.6 10 ^3/uL (0-0.8); Eosinophils % (auto) 6.9 % (0.0-7.0); Hematocrit 29.1 % (36.0-46.0); Hemoglobin 9.5 g/dL (12.2-16.2); Lymphocytes # (auto) 2.1 10 ^3/uL (0.4-5.4); Lymphocytes % (auto) 26.6 % (10.0-50.0); Mean Corpuscular Hemoglobin 28.8 pg (28.0-32.0); Mean Corpuscular Hgb Conc. 32.7 g/dL (32.0-36.0); Mean Corpuscular Volume 88.1 fL (80.0-100.0); Monocytes # (auto) 0.8 10 ^3/uL (0-1.3); Monocytes % (auto) 10.2 % (0.0-12.0); Neutrophils # (auto) 4.5 10 ^3/uL (1.6-8.6); Neutrophils % (auto) 55.8 % (37.0-80.0); Nucleated Red Blood Cells % 0.1 %; Platelet Count (auto) 270 10^3/uL (140-450); Red Cell Distribution Width 14.6 % (11.8-14.3); White Blood Cell 8.1 10^3/uL (4.4-10.8)
[2020-01-26 08:25] LABS: Albumin 2.1 g/dL (3.4-5.0); Calcium 8.6 mg/dL (8.5-10.1); Magnesium 2.4 mg/dL (1.6-2.6); Potassium 3.7 mmol/L (3.5-5.1)
[2020-01-26] MEDS: INDOMETHACIN 25 MG CAP PO SCH ×2 (08:28→21:17)
[2020-01-26] MEDS: GABAPENTIN 400 MG CAP PO SCH ×2 (08:28→21:18)
[2020-01-26] MEDS: POTASSIUM CHL 20 Meq TABLET PO SCH ×2 (08:28→21:17)
[2020-01-26] MEDS: CARVEDILOL 3.125 MG TAB PO SCH ×2 (08:28→21:17)
[2020-01-26 08:30] LABS: BUN/Creatinine Ratio 39.5; Bilirubin, Total 0.2 mg/dL (0.2-1.0); Phosphorus 3.1 mg/dL (2.5-4.90); Total Protein 5.8 g/dL (6.4-8.2)
[2020-01-26 08:53] VITALS: BP 118/70
[2020-01-26] MEDS ORDERED: EPOETIN ALFA 10,000 UNIT/1 ML VIAL SC ONE (09:15)
[2020-01-26] MEDS: ERTAPENEM SOD INJ 1 GM in SODIUM CHL 0.9% 50 ML IV SCH (10:01)
[2020-01-26 13:00] VITALS: BP 140/73
[2020-01-26 16:53] VITALS: BP 134/72
[2020-01-26] MEDS: SODIUM CHLORIDE 0.9% 1,000 ML IV SCH (18:31)
[2020-01-26] MEDS ORDERED: TPN PER PHARMACY IV NR ×9 (20:00)
[2020-01-26] MEDS: PRAVASTATIN SODIUM 20 MG TAB PO SCH (21:18)
[2020-01-26 21:47] VITALS: BP 135/71
[2020-01-27 04:55] VITALS: BP 128/69
[2020-01-27] MEDS: HYDROmorphone HCL 2 MG/ML VL IV PRN ×4 (04:58→23:34)
[2020-01-27] MEDS: ONDANSETRON HCL 4 MG/2 ML VIAL IV PRN ×4 (04:59→23:35)
[2020-01-27] MEDS: FUROSEMIDE 40 MG TAB PO SCH ×2 (06:00→18:00)
[2020-01-27] MEDS: InsuLIN REG 1unit/0.01ml Soln (100units/ml) SC SCH ×5 (06:00→23:34)
[2020-01-27] MEDS: ACCU-CHEK COMFORT CURVE STRIP VI SCH ×5 (06:06→23:33)
[2020-01-27 07:47] LABS: Potassium 3.8 mmol/L (3.5-5.1)
[2020-01-27 07:52] LABS: Basophils # (auto) 0 10 ^3/uL (0-0.2); Basophils % (auto) 0.5 % (0.0-2.0); Eosinophils # (auto) 0.4 10 ^3/uL (0-0.8); Hematocrit 30.9 % (36.0-46.0); Hemoglobin 9.9 g/dL (12.2-16.2); Lymphocytes % (auto) 24.5 % (10.0-50.0); Mean Corpuscular Hemoglobin 28.5 pg (28.0-32.0); Mean Corpuscular Volume 88.9 fL (80.0-100.0); Monocytes # (auto) 0.7 10 ^3/uL (0-1.3); Monocytes % (auto) 8.2 % (0.0-12.0); Neutrophils # (auto) 4.9 10 ^3/uL (1.6-8.6); Neutrophils % (auto) 61.8 % (37.0-80.0); Nucleated Red Blood Cells % 0.1 %; Platelet Count (auto) 331 10^3/uL (140-450); Red Blood Cells 3.47 10^6/uL (4.0-5.20); Red Cell Distribution Width 15.2 % (11.8-14.3)
[2020-01-27 07:56] LABS: Albumin 2.2 g/dL (3.4-5.0); BUN/Creatinine Ratio 34.1; Bilirubin, Total 0.2 mg/dL (0.2-1.0); Calcium 8.8 mg/dL (8.5-10.1); Magnesium 2.5 mg/dL (1.6-2.6); Total Protein 6.4 g/dL (6.4-8.2)
[2020-01-27 08:00] VITALS: BP 134/71
[2020-01-27] MEDS: INDOMETHACIN 25 MG CAP PO SCH ×2 (10:00→20:39)
[2020-01-27] MEDS: POTASSIUM CHL 20 Meq TABLET PO SCH ×2 (10:00→20:39)
[2020-01-27] MEDS: CARVEDILOL 3.125 MG TAB PO SCH ×2 (10:00→20:39)
[2020-01-27] MEDS: GABAPENTIN 400 MG CAP PO SCH ×2 (10:00→20:39)
[2020-01-27] MEDS: ERTAPENEM SOD INJ 1 GM in SODIUM CHL 0.9% 50 ML IV SCH (10:01)
[2020-01-27 12:00] VITALS: BP 132/72
[2020-01-27] MEDS: SODIUM CHLORIDE 0.9% 1,000 ML IV SCH (15:00)
[2020-01-27 17:01] VITALS: BP 126/87
[2020-01-27] MEDS ORDERED: TPN PER PHARMACY IV NR ×9 (20:00)
[2020-01-27] MEDS: PRAVASTATIN SODIUM 20 MG TAB PO SCH (20:40)
[2020-01-27 21:00] VITALS: BP 141/70
[2020-01-28 05:00] VITALS: BP 31/57
[2020-01-28] MEDS: FUROSEMIDE 40 MG TAB PO SCH ×2 (05:11→17:31)
[2020-01-28] MEDS: InsuLIN REG 1unit/0.01ml Soln (100units/ml) SC SCH ×3 (05:21→17:43)
[2020-01-28] MEDS: ACCU-CHEK COMFORT CURVE STRIP VI SCH ×3 (05:21→17:43)
[2020-01-28 06:11] LABS: Potassium 3.6 mmol/L (3.5-5.1)
[2020-01-28 06:20] LABS: Albumin 2.3 g/dL (3.4-5.0); Bilirubin, Total 0.3 mg/dL (0.2-1.0); Calcium 8.4 mg/dL (8.5-10.1); Magnesium 2.4 mg/dL (1.6-2.6); Phosphorus 3.9 mg/dL (2.5-4.90)
[2020-01-28 09:00] VITALS: BP 129/76
[2020-01-28] MEDS: CARVEDILOL 3.125 MG TAB PO SCH ×2 (10:00→21:55)
[2020-01-28] MEDS: GABAPENTIN 400 MG CAP PO SCH ×2 (10:00→21:54)
[2020-01-28] MEDS: INDOMETHACIN 25 MG CAP PO SCH ×2 (10:00→21:55)
[2020-01-28] MEDS: POTASSIUM CHL 20 Meq TABLET PO SCH ×2 (10:00→21:55)
[2020-01-28] MEDS: ERTAPENEM SOD INJ 1 GM in SODIUM CHL 0.9% 50 ML IV SCH (10:21)
[2020-01-28] MEDS: SODIUM CHLORIDE 0.9% 1,000 ML IV SCH (11:00)
[2020-01-28 13:00] VITALS: BP 119/66
[2020-01-28] MEDS: ONDANSETRON HCL 4 MG/2 ML VIAL IV PRN (13:51)
[2020-01-28] MEDS: HYDROmorphone HCL 2 MG/ML VL IV PRN (13:52)
[2020-01-28] MEDS ORDERED: ALUM & MAG HYDROX-SIMETH LIQ(MAALOX) 30 ML PO PRN (14:45)
[2020-01-28 16:31] VITALS: BP 128/60
[2020-01-28] MEDS ORDERED: TPN PER PHARMACY IV NR ×9 (20:00)
[2020-01-28 21:00] VITALS: BP 128/52
[2020-01-28] MEDS: PRAVASTATIN SODIUM 20 MG TAB PO SCH (21:54)
[2020-01-29] MEDS: SODIUM CHLORIDE 0.9% 1,000 ML IV SCH ×2 (01:15→06:27)
[2020-01-29] MEDS: ACCU-CHEK COMFORT CURVE STRIP VI SCH ×4 (01:22→18:02)
[2020-01-29 05:00] VITALS: BP 116/65
[2020-01-29] MEDS: InsuLIN REG 1unit/0.01ml Soln (100units/ml) SC SCH ×4 (05:29→18:00)
[2020-01-29] MEDS: FUROSEMIDE 40 MG TAB PO SCH ×2 (05:31→18:02)
[2020-01-29 06:37] LABS: Albumin 2.2 g/dL (3.4-5.0); Calcium 8.8 mg/dL (8.5-10.1); Magnesium 2.5 mg/dL (1.6-2.6); Potassium 3.9 mmol/L (3.5-5.1)
[2020-01-29 06:40] LABS: BUN/Creatinine Ratio 42.1; Bilirubin, Total 0.2 mg/dL (0.2-1.0); Phosphorus 3.5 mg/dL (2.5-4.90); Total Protein 6.1 g/dL (6.4-8.2)
[2020-01-29 08:00] VITALS: BP 122/69
[2020-01-29 08:52] VITALS: BP 122/69
[2020-01-29] MEDS: ERTAPENEM SOD INJ 1 GM in SODIUM CHL 0.9% 50 ML IV SCH (09:52)
[2020-01-29] MEDS: GABAPENTIN 400 MG CAP PO SCH ×2 (09:53→21:24)
[2020-01-29] MEDS: POTASSIUM CHL 20 Meq TABLET PO SCH ×2 (09:53→21:25)
[2020-01-29] MEDS: INDOMETHACIN 25 MG CAP PO SCH ×2 (09:53→21:25)
[2020-01-29] MEDS: CARVEDILOL 3.125 MG TAB PO SCH ×2 (09:53→21:26)
[2020-01-29] MEDS ORDERED: IOTHALAMATE MEGLUMINE INJ 250ML BOT UR ONE (10:06)
[2020-01-29 12:19] VITALS: BP 123/73
[2020-01-29 16:49] VITALS: BP 127/71
[2020-01-29] MEDS ORDERED: TPN PER PHARMACY IV NR ×8 (20:00)
[2020-01-29] MEDS: PRAVASTATIN SODIUM 20 MG TAB PO SCH (21:25)
[2020-01-29 22:35] VITALS: BP 148/64
[2020-01-30] MEDS: HYDROmorphone HCL 2 MG/ML VL IV PRN (00:49)
[2020-01-30] MEDS: ONDANSETRON HCL 4 MG/2 ML VIAL IV PRN (00:49)
[2020-01-30 05:53] VITALS: BP 104/63
[2020-01-30] MEDS: FUROSEMIDE 40 MG TAB PO SCH ×2 (05:57→18:44)
[2020-01-30 08:00] VITALS: BP 102/48
[2020-01-30] MEDS: ERTAPENEM SOD INJ 1 GM in SODIUM CHL 0.9% 50 ML IV SCH (09:47)
[2020-01-30] MEDS: CARVEDILOL 3.125 MG TAB PO SCH ×2 (09:47→21:30)
[2020-01-30] MEDS: POTASSIUM CHL 20 Meq TABLET PO SCH ×2 (09:48→21:27)
[2020-01-30] MEDS: INDOMETHACIN 25 MG CAP PO SCH ×2 (09:48→21:27)
[2020-01-30] MEDS: GABAPENTIN 400 MG CAP PO SCH ×2 (09:55→21:27)
[2020-01-30 12:00] VITALS: BP 125/65
[2020-01-30 17:00] VITALS: BP 105/66
[2020-01-30] MEDS: PRAVASTATIN SODIUM 20 MG TAB PO SCH (21:27)
[2020-01-30 22:07] VITALS: BP 135/68
[2020-01-30] MEDS: SODIUM CHLORIDE 0.9% 1,000 ML IV SCH (23:31)
[2020-01-31 05:00] VITALS: BP 118/67
[2020-01-31] MEDS: FUROSEMIDE 40 MG TAB PO SCH (06:17)
[2020-01-31 09:00] VITALS: BP_SYST 104; BP_SYST 117; BP_DIAS 63; BP_DIAS 71
[2020-01-31] MEDS: GABAPENTIN 400 MG CAP PO SCH (10:00)
[2020-01-31] MEDS: ERTAPENEM SOD INJ 1 GM in SODIUM CHL 0.9% 50 ML IV SCH (10:00)
[2020-01-31] MEDS: CARVEDILOL 3.125 MG TAB PO SCH (10:01)
[2020-01-31] MEDS: POTASSIUM CHL 20 Meq TABLET PO SCH (10:01)
[2020-01-31] MEDS: INDOMETHACIN 25 MG CAP PO SCH (10:02)
[2020-01-31 13:00] VITALS: BP 108/73
[2020-01-31 14:01] VITALS: BP 100/73
== END 2020-01-31 15:50 | disposition home health service (06) | DRG 853 ==
LOC: CENTRAL 10:50 → TELE-CENTR 01-23 11:56 → CENTRAL 01-30 22:19
PROVIDERS: ADMIT Internal Medicine Cardiovascular Disease; ATTEND Internal Medicine Cardiovascular Disease
PROC: 02HV33Z Insertion of Infusion Device into Superior Vena Cava, Percutaneous Approach (ICD-10-PCS; 2020-01-15)
PROC: 3E0336Z Introduction of Nutritional Substance into Peripheral Vein, Percutaneous Approach (ICD-10-PCS; 2020-01-16)
PROC: 0DJD8ZZ Inspection of Lower Intestinal Tract, Via Natural or Artificial Opening Endoscopic (ICD-10-PCS; principal; 2020-01-20 12:24)
PROC: 0TQB0ZZ Repair Bladder, Open Approach (ICD-10-PCS; 2020-01-23)
PROC: 0DQN0ZZ Repair Sigmoid Colon, Open Approach (ICD-10-PCS; 2020-01-23)
PROC: 0DNE0ZZ Release Large Intestine, Open Approach (ICD-10-PCS; 2020-01-23)
DX: A41.9 Sepsis, unspecified organism (principal); K65.1 Peritoneal abscess; N32.1 Vesicointestinal fistula; I50.22 Chronic systolic (congestive) heart failure; E44.0 Moderate protein-calorie malnutrition; K57.90 Diverticulosis of intestine, part unspecified, without perforation or abscess without bleeding; E78.5 Hyperlipidemia, unspecified; I11.0 Hypertensive heart disease with heart failure; Z20.828 Contact with and (suspected) exposure to other viral communicable diseases; K64.8 Other hemorrhoids; K66.0 Peritoneal adhesions (postprocedural) (postinfection); Z80.8 Family history of malignant neoplasm of other organs or systems; Z82.0 Family history of epilepsy and other diseases of the nervous system; Z82.49 Family history of ischemic heart disease and other diseases of the circulatory system; Z82.3 Family history of stroke; Z82.5 Family history of asthma and other chronic lower respiratory diseases; Z90.49 Acquired absence of other specified parts of digestive tract; Z68.29 Body mass index [BMI] 29.0-29.9, adult; Z88.2 Allergy status to sulfonamides
CPT/HCPCS: 36415; 71045; 74176; 74430; 80053; 81001; 82040; 82962; 83735; 84100; 84478; 85025; 85610; 86850; 86900; 86901; 87086; 97163; 97530; G0378; J0330; J0696; J0885; J1335; J1815; J1885; J2250; J2405; J2543; J2704; J3480; J3490; J7131

== ENCOUNTER → 2020-06-05 | Outpatient (CLI) | payer MEDICARE ==
[~2020-06-05] MED LIST changes: -ALEN1TAB32 PO; +FERR27TA2 PO; +IOHEXOL 350 MG/ML 100ML IJ ONE; -LISI-275 PO; -OMEP20TA PO; +READI-CAT 2 (BARIUM SULF)(VANILLA SMOOTHIE) 450ML ONE; -TOPI50TA53 PO
[2020-06-05 11:35] VITALS: BP 122/68
[2020-06-05 12:25] VITALS: BP 139/50
== END | disposition home or self-care (01) ==
LOC: Rad HDHVI 11:31
PROVIDERS: ATTEND Internal Medicine Cardiovascular Disease
DX: K31.89 Other diseases of stomach and duodenum (principal); N32.89 Other specified disorders of bladder; I70.0 Atherosclerosis of aorta; M47.819 Spondylosis without myelopathy or radiculopathy, site unspecified; R10.9 Unspecified abdominal pain; Z90.49 Acquired absence of other specified parts of digestive tract
CPT/HCPCS: 74177; G0463; Q9967

== ENCOUNTER → 2020-08-28 | Outpatient (CLI) | payer MEDICARE ==
[~2020-08-28] MED LIST changes: -IOHEXOL 350 MG/ML 100ML IJ ONE
== END | disposition home or self-care (01) ==
LOC: Rad HDHVI 09:17
PROVIDERS: ATTEND Internal Medicine Cardiovascular Disease
DX: J98.11 Atelectasis (principal); I51.7 Cardiomegaly; I70.0 Atherosclerosis of aorta; K59.00 Constipation, unspecified; M47.819 Spondylosis without myelopathy or radiculopathy, site unspecified
CPT/HCPCS: 74176

== ENCOUNTER → 2020-11-24 | Outpatient (CLI) | payer MEDICARE ==
[~2020-11-24] VITALS: Ht 162.6 cm; Wt 83.0 kg
[~2020-11-24] MED LIST changes: -READI-CAT 2 (BARIUM SULF)(VANILLA SMOOTHIE) 450ML ONE
== END | disposition home or self-care (01) ==
LOC: Rad HDHVI 12:56
PROVIDERS: ATTEND Internal Medicine Cardiovascular Disease
DX: I50.43 Acute on chronic combined systolic (congestive) and diastolic (congestive) heart failure (principal); K63.2 Fistula of intestine; R00.2 Palpitations; E78.5 Hyperlipidemia, unspecified; I42.0 Dilated cardiomyopathy; N39.0 Urinary tract infection, site not specified; R42 Dizziness and giddiness; I51.7 Cardiomegaly; Z95.810 Presence of automatic (implantable) cardiac defibrillator
CPT/HCPCS: 78452; 93017; 96374; A9500

== ENCOUNTER 2021-04-27 06:07 | Inpatient (IN) | payer MEDICARE ==
[2021-04-23 14:15] LABS: Basophils # (auto) 0.1 10 ^3/uL (0-0.2); Eosinophils # (auto) 0.3 10 ^3/uL (0-0.8); Eosinophils % (auto) 3.3 % (0.0-7.0); Hematocrit 39.1 % (36.0-46.0); Hemoglobin 13.1 g/dL (12.2-16.2); Lymphocytes # (auto) 3.8 10 ^3/uL (0.4-5.4); Lymphocytes % (auto) 48.5 % (10.0-50.0); Mean Corpuscular Hgb Conc. 33.5 g/dL (32.0-36.0); Mean Corpuscular Volume 89.6 fL (80.0-100.0); Monocytes # (auto) 0.6 10 ^3/uL (0-1.3); Monocytes % (auto) 7.8 % (0.0-12.0); Neutrophils # (auto) 3.1 10 ^3/uL (1.6-8.6); Neutrophils % (auto) 39.4 % (37.0-80.0); Nucleated Red Blood Cells % 0.2 %; Red Blood Cells 4.37 10^6/uL (4.0-5.20); Red Cell Distribution Width 14.8 % (11.8-14.3); White Blood Cell 7.8 10^3/uL (4.4-10.8)
[2021-04-23 14:29] LABS: Urine Bacteria NONE SEEN /hpf (None Seen); Urine Blood Negative /uL (Negative); Urine Specific Gravity 1.004 (1.001-1.035); Urine WBC 3 /hpf (0 - 5)
[2021-04-23 15:19] LABS: Albumin 3.7 g/dL (3.4-5.0); Calcium 8.9 mg/dL (8.5-10.1); Potassium 4.1 mmol/L (3.5-5.1)
[2021-04-23 15:24] LABS: BUN/Creatinine Ratio 25.7; Bilirubin, Total 0.4 mg/dL (0.2-1.0); Total Protein 7.4 g/dL (6.4-8.2)
[2021-04-27] VITALS (12 sets, daily range): BP systolic 114–135; BP diastolic 52–76
[~2021-04-27] VITALS: Ht 162.6 cm; Wt 90.3 kg
[~2021-04-27 06:07] MED LIST changes: +CHOL200021 PO; -FERR27TA2 PO; +MULT-1018 OR; +MULT-512 PO; +MULT-688 PO; +OMEG100078 PO; +OMEP-434 PO; +SENNTAB OR; +ZINC10LO4 PO
[2021-04-27] MEDS ORDERED: TRANEXAMIC ACID 20 ML ONE (06:48)
[2021-04-27] MEDS ORDERED: EPINEPHrine HCL 1 MG/1 ML AMP ONE ×3 (06:48→07:18)
[2021-04-27] MEDS ORDERED: ceFAZolin 1GM/50ML 100 ML IV ONE ×2 (06:54→13:51)
[2021-04-27] MEDS ORDERED: VANCOMYCIN HCL 1000 MG VL ONE (06:58)
[2021-04-27] MEDS ORDERED: TETRACAINE 1% INJ 2 ML VIAL IJ ONE (07:12)
[2021-04-27] MEDS ORDERED: MORPHINE SULF PF 2 MG/2 ML SYRG ONE (07:16)
[2021-04-27] MEDS ORDERED: fentaNYL CITRATE 100 MCG/2 ML VL ONE (07:16)
[2021-04-27] MEDS ORDERED: MIDAZOLAM HCL 2MG/2ML 2ml VIAL (1mg/ml) ONE (07:17)
[2021-04-27] MEDS ORDERED: diphenhdrAMINE HCL 50 MG/1 ML VL IV PRN (08:15)
[2021-04-27] MEDS ORDERED: ePHEDrine SULFATE 50 MG/ML AMP IV PRN (08:15)
[2021-04-27] MEDS ORDERED: NALBUPHINE HCL 10 MG/1ml INJECTION SUBCUT ONE (08:15)
[2021-04-27] MEDS ORDERED: MIDAZOLAM HCL 2MG/2ML 2ml VIAL (1mg/ml) IV PRN (08:15)
[2021-04-27] MEDS ORDERED: HYDROmorphone HCL 2 MG/ML VL IV PRN (08:15)
[2021-04-27] MEDS ORDERED: NALOXONE HCL 0.4 MG/ML VIAL IV PRN (08:15)
[2021-04-27] MEDS ORDERED: DexAMETHasone SOD PHOS 10MG/1ML VIAL INJ IV PRN (08:15)
[2021-04-27] MEDS ORDERED: oxyCODONE HCL 5MG TAB PO PRN (10:30)
[2021-04-27] MEDS: D5W/LACTATED RINGERS 1,000 ML IV SCH ×2 (10:30→20:30)
[2021-04-27] MEDS: KETOROLAC TROMETH 30 MG/ML 1ML VIAL IV SCH ×2 (12:21→17:19)
[2021-04-27] MEDS: ACETAMINOPHEN 325 MG TAB PO SCH ×2 (12:26→17:19)
[2021-04-27] MEDS: ONDANSETRON HCL 4 MG/2 ML VIAL IV PRN ×4 (13:05→21:13)
[2021-04-27] MEDS ORDERED: ceFAZolin 2 GM in D5W 5% 100 ML IV SCH (14:00)
[2021-04-27] MEDS: ceFAZolin 2 GM in D5W 5% 100 ML IV SCH ×2 (14:01→21:11)
[2021-04-27] MEDS: HYDROmorphone HCL 2 MG/ML VL IV PRN ×2 (14:18→21:13)
[2021-04-27] MEDS: CARVEDILOL 3.125 MG TAB PO SCH (21:11)
[2021-04-27] MEDS: FUROSEMIDE 40 MG TAB PO SCH (21:12)
[2021-04-27] MEDS: POTASSIUM CHL 20 Meq TABLET PO SCH (21:12)
[2021-04-27] MEDS: PREGABALIN 25 MG CAP PO SCH (21:12)
[2021-04-28] VITALS (14 sets, daily range): BP systolic 106–130; BP diastolic 52–81
[2021-04-28] MEDS: KETOROLAC TROMETH 30 MG/ML 1ML VIAL IV SCH ×4 (00:46→18:27)
[2021-04-28] MEDS: ACETAMINOPHEN 325 MG TAB PO SCH ×4 (00:47→18:27)
[2021-04-28] MEDS: HYDROmorphone HCL 2 MG/ML VL IV PRN ×2 (03:04→08:41)
[2021-04-28] MEDS: ONDANSETRON HCL 4 MG/2 ML VIAL IV PRN ×2 (03:05→08:40)
[2021-04-28] MEDS: D5W/LACTATED RINGERS 1,000 ML IV SCH ×2 (06:18→16:30)
[2021-04-28 07:04] LABS: Basophils # (auto) 0 10 ^3/uL (0-0.2); Basophils % (auto) 0.2 % (0.0-2.0); Eosinophils # (auto) 0 10 ^3/uL (0-0.8); Eosinophils % (auto) 0.2 % (0.0-7.0); Hemoglobin 10.2 g/dL (12.2-16.2); Lymphocytes # (auto) 1.5 10 ^3/uL (0.4-5.4); Lymphocytes % (auto) 17.9 % (10.0-50.0); Mean Corpuscular Hemoglobin 30.6 pg (28.0-32.0); Mean Corpuscular Hgb Conc. 33.9 g/dL (32.0-36.0); Mean Corpuscular Volume 90.3 fL (80.0-100.0); Monocytes # (auto) 0.7 10 ^3/uL (0-1.3); Monocytes % (auto) 7.8 % (0.0-12.0); Neutrophils # (auto) 6.4 10 ^3/uL (1.6-8.6); Neutrophils % (auto) 73.9 % (37.0-80.0); Red Blood Cells 3.32 10^6/uL (4.0-5.20); Red Cell Distribution Width 14.6 % (11.8-14.3); White Blood Cell 8.6 10^3/uL (4.4-10.8)
[2021-04-28 07:08] LABS: BUN/Creatinine Ratio 23.1; Calcium 8.7 mg/dL (8.5-10.1); Potassium 3.9 mmol/L (3.5-5.1)
[2021-04-28] MEDS: POTASSIUM CHL 20 Meq TABLET PO SCH ×2 (08:41→21:36)
[2021-04-28] MEDS: PANTOPRAZOLE 40 MG TAB PO SCH (08:42)
[2021-04-28] MEDS: ASPirin 81 mg TAB PO SCH ×2 (08:42→21:35)
[2021-04-28] MEDS: PREGABALIN 25 MG CAP PO SCH ×2 (08:43→21:37)
[2021-04-28] MEDS: FUROSEMIDE 40 MG TAB PO SCH ×2 (08:43→21:37)
[2021-04-28] MEDS: PRAVASTATIN SODIUM 20 MG TAB PO SCH (08:43)
[2021-04-28] MEDS: CARVEDILOL 3.125 MG TAB PO SCH ×2 (08:44→21:36)
[2021-04-28] MEDS: oxyCODONE HCL 5MG TAB PO PRN ×2 (15:40→21:10)
[2021-04-29] MEDS: KETOROLAC TROMETH 30 MG/ML 1ML VIAL IV SCH ×3 (00:23→12:00)
[2021-04-29] MEDS: ACETAMINOPHEN 325 MG TAB PO SCH ×3 (00:24→12:00)
[2021-04-29 05:00] VITALS: BP 121/60
[2021-04-29 08:00] VITALS: BP 110/62
[2021-04-29 09:00] VITALS: BP 110/62
[2021-04-29] MEDS ORDERED: MAGNESIUM CITRATE SOLUTION 300 ML BTL PO ONE (09:30)
[2021-04-29] MEDS: ASPirin 81 mg TAB PO SCH (10:04)
[2021-04-29] MEDS: POTASSIUM CHL 20 Meq TABLET PO SCH (10:04)
[2021-04-29] MEDS: PRAVASTATIN SODIUM 20 MG TAB PO SCH (10:05)
[2021-04-29] MEDS: PREGABALIN 25 MG CAP PO SCH (10:05)
[2021-04-29] MEDS: FUROSEMIDE 40 MG TAB PO SCH (10:05)
[2021-04-29] MEDS: PANTOPRAZOLE 40 MG TAB PO SCH (10:05)
[2021-04-29] MEDS: CARVEDILOL 3.125 MG TAB PO SCH (10:06)
[2021-04-29 10:56] VITALS: BP 110/62
[2021-04-29 12:00] VITALS: BP 112/68
== END 2021-04-29 12:50 | disposition home health service (06) | DRG 470 ==
LOC: SUR 06:07 → TELE 10:29 → TELE-WESTW 15:21
PROVIDERS: ADMIT Orthopaedic Surgery; ATTEND Orthopaedic Surgery
PROC: 8E0YXBZ Computer Assisted Procedure of Lower Extremity (ICD-10-PCS; 2021-04-27)
PROC: 0SRD069 Replacement of Left Knee Joint with Oxidized Zirconium on Polyethylene Synthetic Substitute, Cemented, Open Approach (ICD-10-PCS; principal; 2021-04-27 07:32)
DX: M17.12 Unilateral primary osteoarthritis, left knee (principal); I50.22 Chronic systolic (congestive) heart failure; D62 Acute posthemorrhagic anemia; I42.0 Dilated cardiomyopathy; E66.01 Morbid (severe) obesity due to excess calories; G89.29 Other chronic pain; I11.0 Hypertensive heart disease with heart failure; Z20.822 Contact with and (suspected) exposure to COVID-19; Z82.3 Family history of stroke; Z82.5 Family history of asthma and other chronic lower respiratory diseases; Z81.8 Family history of other mental and behavioral disorders; Z82.49 Family history of ischemic heart disease and other diseases of the circulatory system; Z93.3 Colostomy status; Z88.2 Allergy status to sulfonamides; Z88.8 Allergy status to other drugs, medicaments and biological substances; Z68.33 Body mass index [BMI] 33.0-33.9, adult; Z95.810 Presence of automatic (implantable) cardiac defibrillator
CPT/HCPCS: 36415; 73562; 80048; 80053; 81001; 85025; 86850; 86900; 86901; 97110; 97116; 97163; 97530; G0378; J0171; J0690; J1885; J2250; J2405; J7060

== ENCOUNTER → 2021-12-13 | Outpatient (CLI) | payer MEDICARE | END | disposition home or self-care (01) | LOC: Rad HDHVI 09:52 | PROVIDERS: ATTEND Internal Medicine Cardiovascular Disease | DX: I08.1 Rheumatic disorders of both mitral and tricuspid valves (principal); I42.0 Dilated cardiomyopathy; E78.5 Hyperlipidemia, unspecified | CPT/HCPCS: 93306 ==

== ENCOUNTER → 2021-12-17 | Outpatient (CLI) | payer MEDICARE ==
[~2021-12-17] VITALS: Ht 162.6 cm; Wt 89.4 kg
[~2021-12-17] MED LIST changes: +ADENOSINE 75 MG in GIVE UN-DILUTED 0 ML IV ONE; +ADENOSINE 90 MG/30 ML INJ IV ONE
== END | disposition home or self-care (01) ==
LOC: Rad HDHVI 09:18
PROVIDERS: ATTEND Internal Medicine Cardiovascular Disease
DX: E78.5 Hyperlipidemia, unspecified (principal); I42.0 Dilated cardiomyopathy; I50.33 Acute on chronic diastolic (congestive) heart failure; R06.02 Shortness of breath; I51.7 Cardiomegaly; Z95.0 Presence of cardiac pacemaker; Z82.49 Family history of ischemic heart disease and other diseases of the circulatory system
CPT/HCPCS: 78452; 93005; 96374; 96375; A9500; J0153

== ENCOUNTER 2022-01-03 15:26 | Emergency (ER) | payer MEDICARE ==
[~2022-01-03] VITALS: Ht 162.6 cm; Wt 90.0 kg
[~2022-01-03 15:26] MED LIST changes: -ADENOSINE 75 MG in GIVE UN-DILUTED 0 ML IV ONE; -ADENOSINE 90 MG/30 ML INJ IV ONE
[2022-01-03 15:47] VITALS: BP 131/65
== END 2022-01-03 19:47 | disposition home or self-care (01) ==
LOC: ER 15:26
DX: S80.02XA Contusion of left knee, initial encounter (principal); Z88.2 Allergy status to sulfonamides; X58.XXXA Exposure to other specified factors, initial encounter; Y93.89 Activity, other specified; Y92.89 Other specified places as the place of occurrence of the external cause; Y99.8 Other external cause status
CPT/HCPCS: 73700; 93971

== ENCOUNTER 2022-01-11 11:45 | Inpatient (IN) | payer MEDICARE ==
[~2022-01-11] VITALS: Ht 162.6 cm; Wt 0.1 kg
[2022-01-11 13:22] LABS: Basophils # (auto) 0.1 10 ^3/uL (0-0.2); Basophils % (auto) 0.8 % (0.0-2.0); Eosinophils # (auto) 0.3 10 ^3/uL (0-0.8); Eosinophils % (auto) 3.1 % (0.0-7.0); Hematocrit 34.6 % (36.0-46.0); Hemoglobin 11.3 g/dL (12.2-16.2); Lymphocytes # (auto) 2.8 10 ^3/uL (0.4-5.4); Lymphocytes % (auto) 26.8 % (10.0-50.0); Mean Corpuscular Hemoglobin 27.3 pg (28.0-32.0); Mean Corpuscular Hgb Conc. 32.6 g/dL (32.0-36.0); Mean Corpuscular Volume 83.9 fL (80.0-100.0); Monocytes # (auto) 0.9 10 ^3/uL (0-1.3); Monocytes % (auto) 8.8 % (0.0-12.0); Neutrophils # (auto) 6.2 10 ^3/uL (1.6-8.6); Neutrophils % (auto) 60.5 % (37.0-80.0); Nucleated Red Blood Cells % 0.1 %; Red Blood Cells 4.13 10^6/uL (4.0-5.20); Red Cell Distribution Width 15.6 % (11.8-14.3); White Blood Cell 10.3 10^3/uL (4.4-10.8)
[2022-01-11 13:29] LABS: Albumin 3.3 g/dL (3.4-5.0); Calcium 9.3 mg/dL (8.5-10.1); Potassium 4.4 mmol/L (3.5-5.1)
[2022-01-11 13:33] LABS: BUN/Creatinine Ratio 17.6; Bilirubin, Total 0.4 mg/dL (0.2-1.0); Total Protein 8.4 g/dL (6.4-8.2)
[2022-01-11 13:58] LABS: Urine Bacteria FEW /hpf (None Seen); Urine Blood TRACE /uL (Negative); Urine Specific Gravity 1.004 (1.001-1.035); Urine WBC 17 /hpf (0 - 5)
[2022-01-11] MEDS: SODIUM CHLORIDE 0.9% 1,000 ML IV SCH (17:30)
[2022-01-11] MEDS ORDERED: DOCUSATE SOD 100 MG CAP PO PRN (18:45)
[2022-01-11] MEDS ORDERED: MORPHINE SULFATE INJ 2 MG/ml SYRG IV PRN (18:45)
[2022-01-11] MEDS: ACETAMINOPHEN 325 MG TAB PO PRN (19:56)
[2022-01-11] MEDS: CARVEDILOL 3.125 MG TAB PO SCH (23:14)
[2022-01-11 23:30] VITALS: BP 143/57
[2022-01-12] MEDS: HYDROcodone-ACET 5/325MG TAB PO PRN ×3 (00:08→20:38)
[2022-01-12 05:00] VITALS: BP 137/81
[2022-01-12 06:43] LABS: Basophils # (auto) 0.1 10 ^3/uL (0-0.2); Basophils % (auto) 0.9 % (0.0-2.0); Eosinophils # (auto) 0.3 10 ^3/uL (0-0.8); Eosinophils % (auto) 3.7 % (0.0-7.0); Hematocrit 33.8 % (36.0-46.0); Hemoglobin 11.2 g/dL (12.2-16.2); Lymphocytes # (auto) 2.2 10 ^3/uL (0.4-5.4); Lymphocytes % (auto) 29.2 % (10.0-50.0); Mean Corpuscular Hemoglobin 27.6 pg (28.0-32.0); Mean Corpuscular Hgb Conc. 33.1 g/dL (32.0-36.0); Mean Corpuscular Volume 83.1 fL (80.0-100.0); Monocytes # (auto) 0.8 10 ^3/uL (0-1.3); Monocytes % (auto) 9.9 % (0.0-12.0); Neutrophils # (auto) 4.3 10 ^3/uL (1.6-8.6); Neutrophils % (auto) 56.3 % (37.0-80.0); Red Blood Cells 4.07 10^6/uL (4.0-5.20); Red Cell Distribution Width 15.4 % (11.8-14.3); White Blood Cell 7.6 10^3/uL (4.4-10.8)
[2022-01-12 06:49] LABS: Potassium 3.7 mmol/L (3.5-5.1)
[2022-01-12 07:13] LABS: BUN/Creatinine Ratio 17.2; Bilirubin, Total 0.4 mg/dL (0.2-1.0); Calcium 9.3 mg/dL (8.5-10.1); Total Protein 7.6 g/dL (6.4-8.2)
[2022-01-12 09:25] VITALS: BP 155/86
[2022-01-12] MEDS: ENOXAPARIN SOD 40 MG/0.4 ML SYRINGE SC SCH (10:00)
[2022-01-12] MEDS: CARVEDILOL 3.125 MG TAB PO SCH ×2 (10:10→23:01)
[2022-01-12] MEDS ORDERED: ceFAZolin 1GM/50ML 100 ML IV ONE (10:32)
[2022-01-12 10:48] LABS: INR 1.01 (0.9-1.15); Partial Thromboplastin Time 31.9 sec (24.6-33.4)
[2022-01-12] MEDS: SODIUM CHLORIDE 0.9% 1,000 ML IV SCH (11:25)
[2022-01-12] MEDS ORDERED: [UNRECOGNIZED DRUG - REMARK] IV SCH (11:45)
[2022-01-12] MEDS ORDERED: MIDAZOLAM HCL 2MG/2ML 2ml VIAL (1mg/ml) ONE (11:49)
[2022-01-12] MEDS ORDERED: MEPERIDINE HCL (50 MG/ML) 1 ML VIAL ONE (11:49)
[2022-01-12] MEDS ORDERED: fentaNYL CITRATE 100 MCG/2 ML VL ONE ×2 (11:49→12:59)
[2022-01-12] MEDS ORDERED: TOBRAMYCIN SULFATE 40 MG/ML 2ML VIAL XX ONE ×2 (12:00→16:00)
[2022-01-12] MEDS ORDERED: VANCOMYCIN HCL 1000 MG VL ONE ×2 (12:01→13:31)
[2022-01-12] MEDS ORDERED: DexAMETHasone SOD PHOS 10MG/1ML VIAL INJ ONE (12:22)
[2022-01-12] MEDS ORDERED: ETOMIDATE (2MG/ML) 20ML VIAL IV ONE (12:22)
[2022-01-12] MEDS ORDERED: ONDANSETRON HCL 4 MG/2 ML VIAL IV PRN (12:45)
[2022-01-12] MEDS ORDERED: LABETALOL HCL 5 MG/ML 4ML SYRINGE IV PRN (12:45)
[2022-01-12] MEDS ORDERED: MIDAZOLAM HCL 2MG/2ML 2ml VIAL (1mg/ml) IV PRN (12:45)
[2022-01-12] MEDS ORDERED: MORPHINE SULFATE 4 MG/ML SYR/VIAL IV PRN (12:45)
[2022-01-12] MEDS ORDERED: ePHEDrine SULFATE 50 MG/ML AMP IV PRN (12:45)
[2022-01-12] MEDS ORDERED: METOCLOPRAMIDE HCL 5MG/ml INJ 2ml VIAL IV PRN (12:45)
[2022-01-12] MEDS ORDERED: TRANEXAMIC ACID 20 ML ONE (12:57)
[2022-01-12] MEDS: HYDROmorphone HCL 2 MG/ML VL/or syr IV PRN ×4 (14:43→15:19)
[2022-01-12] MEDS ORDERED: VANCOMYCIN PER PHARMACY 0 MG IV SCH (15:30)
[2022-01-12] MEDS: ONDANSETRON HCL 4 MG/2 ML VIAL IV PRN (15:42)
[2022-01-12 16:40] VITALS: BP 149/67
[2022-01-12] MEDS: VANCOMYCIN 1GM/250ML 250 ML IV SCH (18:47)
[2022-01-12] MEDS: CEFTRIAXONE SODIUM 2 GM in D5W 5% 50 ML IV SCH (20:39)
[2022-01-12 22:00] VITALS: BP 141/64
[2022-01-12] MEDS ORDERED: ceFAZolin 2 GM in D5W 5% 100 ML IV SCH (22:00)
[2022-01-13] MEDS: HYDROcodone-ACET 10/325MG TAB PO PRN ×2 (03:50→09:14)
[2022-01-13] MEDS: VANCOMYCIN 1GM/250ML 250 ML IV SCH ×2 (04:28→17:39)
[2022-01-13] MEDS: SODIUM CHLORIDE 0.9% 1,000 ML IV SCH ×2 (04:28→20:45)
[2022-01-13 05:00] VITALS: BP 131/56
[2022-01-13 08:51] VITALS: BP 126/46
[2022-01-13] MEDS: CARVEDILOL 3.125 MG TAB PO SCH ×2 (10:00→21:53)
[2022-01-13] MEDS: CEFTRIAXONE SODIUM 2 GM in D5W 5% 50 ML IV SCH (10:00)
[2022-01-13] MEDS: ENOXAPARIN SOD 40 MG/0.4 ML SYRINGE SC SCH (10:00)
[2022-01-13] MEDS: rifAMPin 300 MG CAP PO SCH (10:01)
[2022-01-13] MEDS: ONDANSETRON HCL 4 MG/2 ML VIAL IV PRN (11:45)
[2022-01-13 13:00] VITALS: BP 136/62
[2022-01-13] MEDS: ACETAMINOPHEN 325 MG TAB PO PRN ×2 (15:46→22:08)
[2022-01-13 17:00] VITALS: BP 125/50
[2022-01-13] MEDS: GABAPENTIN 400 MG CAP PO SCH (21:52)
[2022-01-13] MEDS: PRAVASTATIN SODIUM 20 MG TAB PO SCH (21:52)
[2022-01-13] MEDS: DOCUSATE SOD 100 MG CAP PO SCH (21:52)
[2022-01-13 22:00] VITALS: BP 147/49
[2022-01-14 05:00] VITALS: BP 133/58
[2022-01-14] MEDS: SODIUM CHLORIDE 0.9% 1,000 ML IV SCH (05:17)
[2022-01-14] MEDS: HYDROcodone-ACET 5/325MG TAB PO PRN (05:29)
[2022-01-14] MEDS: VANCOMYCIN 1GM/250ML 250 ML IV SCH ×2 (07:02→20:37)
[2022-01-14 09:00] VITALS: BP 129/49
[2022-01-14] MEDS: rifAMPin 300 MG CAP PO SCH (10:00)
[2022-01-14] MEDS: HYDROcodone-ACET 10/325MG TAB PO PRN ×3 (10:09→21:56)
[2022-01-14] MEDS: CEFTRIAXONE SODIUM 2 GM in D5W 5% 50 ML IV SCH (11:04)
[2022-01-14] MEDS: POTASSIUM CHL 20 Meq TABLET PO SCH (11:05)
[2022-01-14] MEDS: GABAPENTIN 400 MG CAP PO SCH ×2 (11:05→21:57)
[2022-01-14] MEDS: CARVEDILOL 3.125 MG TAB PO SCH ×2 (11:06→21:55)
[2022-01-14] MEDS: DOCUSATE SOD 100 MG CAP PO SCH ×2 (11:07→21:56)
[2022-01-14] MEDS: FUROSEMIDE 20 MG TAB PO SCH (11:07)
[2022-01-14] MEDS: ENOXAPARIN SOD 40 MG/0.4 ML SYRINGE SC SCH (11:07)
[2022-01-14] MEDS ORDERED: LIDOCAINE 1% (LOCAL ANESTH.) PF 5ml SDV ID ONE (12:15)
[2022-01-14 13:00] VITALS: BP 144/83
[2022-01-14 17:00] VITALS: BP 131/60
[2022-01-14] MEDS: PRAVASTATIN SODIUM 20 MG TAB PO SCH (21:58)
[2022-01-14 22:00] VITALS: BP 133/47
[2022-01-15] MEDS: SODIUM CHLOR 0.9% PF (SALINE LOCK) 10ML VIAL/SYR IV SCH ×3 (00:39→22:52)
[2022-01-15] MEDS: HYDROcodone-ACET 10/325MG TAB PO PRN ×4 (05:49→20:24)
[2022-01-15] MEDS: SODIUM CHLORIDE 0.9% 1,000 ML IV SCH (05:50)
[2022-01-15] MEDS: VANCOMYCIN 1GM/250ML 250 ML IV SCH ×2 (08:25→20:26)
[2022-01-15 09:00] VITALS: BP 121/65
[2022-01-15] MEDS: DOCUSATE SOD 100 MG CAP PO SCH ×2 (09:21→21:09)
[2022-01-15] MEDS: FUROSEMIDE 20 MG TAB PO SCH (09:22)
[2022-01-15] MEDS: POTASSIUM CHL 20 Meq TABLET PO SCH (09:22)
[2022-01-15] MEDS: ENOXAPARIN SOD 40 MG/0.4 ML SYRINGE SC SCH (09:23)
[2022-01-15] MEDS: GABAPENTIN 400 MG CAP PO SCH ×2 (09:23→21:09)
[2022-01-15] MEDS: CARVEDILOL 3.125 MG TAB PO SCH ×2 (09:23→21:48)
[2022-01-15] MEDS: rifAMPin 300 MG CAP PO SCH (09:26)
[2022-01-15] MEDS: CEFTRIAXONE SODIUM 2 GM in D5W 5% 50 ML IV SCH (11:30)
[2022-01-15 13:00] VITALS: BP 105/58
[2022-01-15 17:25] VITALS: BP 153/69
[2022-01-15] MEDS: PRAVASTATIN SODIUM 20 MG TAB PO SCH (21:10)
[2022-01-16] MEDS: HYDROcodone-ACET 10/325MG TAB PO PRN ×3 (04:31→20:52)
[2022-01-16 05:00] VITALS: BP 131/62
[2022-01-16 05:24] LABS: Albumin 2.9 g/dL (3.4-5.0); Potassium 3.4 mmol/L (3.5-5.1)
[2022-01-16 05:26] LABS: BUN/Creatinine Ratio 18.2; Calcium 9.7 mg/dL (8.5-10.1); Phosphorus 4.5 mg/dL (2.5-4.90)
[2022-01-16] MEDS: VANCOMYCIN 1GM/250ML 250 ML IV SCH ×2 (08:37→21:07)
[2022-01-16 09:00] VITALS: BP 143/65
[2022-01-16] MEDS: SODIUM CHLOR 0.9% PF (SALINE LOCK) 10ML VIAL/SYR IV SCH ×2 (09:58→20:52)
[2022-01-16] MEDS: rifAMPin 300 MG CAP PO SCH (09:58)
[2022-01-16] MEDS: DOCUSATE SOD 100 MG CAP PO SCH ×2 (09:58→21:08)
[2022-01-16] MEDS: ENOXAPARIN SOD 40 MG/0.4 ML SYRINGE SC SCH (09:59)
[2022-01-16] MEDS: GABAPENTIN 400 MG CAP PO SCH ×2 (09:59→20:51)
[2022-01-16] MEDS: POTASSIUM CHL 20 Meq TABLET PO SCH (09:59)
[2022-01-16] MEDS: CEFTRIAXONE SODIUM 2 GM in D5W 5% 50 ML IV SCH (09:59)
[2022-01-16] MEDS: CARVEDILOL 3.125 MG TAB PO SCH ×2 (09:59→21:08)
[2022-01-16] MEDS: FUROSEMIDE 20 MG TAB PO SCH (09:59)
[2022-01-16] MEDS: HYDROcodone-ACET 5/325MG TAB PO PRN (10:11)
[2022-01-16 13:17] VITALS: BP 109/56
[2022-01-16 17:00] VITALS: BP 126/71
[2022-01-16] MEDS: PRAVASTATIN SODIUM 20 MG TAB PO SCH (20:52)
[2022-01-16 22:00] VITALS: BP 144/81
[2022-01-17] MEDS: HYDROcodone-ACET 10/325MG TAB PO PRN ×2 (04:08→09:31)
[2022-01-17 05:00] VITALS: BP 149/62
[2022-01-17 09:00] VITALS: BP 137/67
[2022-01-17] MEDS: rifAMPin 300 MG CAP PO SCH (09:32)
[2022-01-17] MEDS: GABAPENTIN 400 MG CAP PO SCH ×2 (09:32→21:07)
[2022-01-17] MEDS: POTASSIUM CHL 20 Meq TABLET PO SCH (09:33)
[2022-01-17] MEDS: DOCUSATE SOD 100 MG CAP PO SCH ×2 (09:33→21:08)
[2022-01-17] MEDS: FUROSEMIDE 20 MG TAB PO SCH (09:33)
[2022-01-17] MEDS: ENOXAPARIN SOD 40 MG/0.4 ML SYRINGE SC SCH (09:34)
[2022-01-17] MEDS: CARVEDILOL 3.125 MG TAB PO SCH ×2 (09:34→21:09)
[2022-01-17] MEDS: SODIUM CHLOR 0.9% PF (SALINE LOCK) 10ML VIAL/SYR IV SCH ×2 (09:35→21:10)
[2022-01-17] MEDS: CEFTRIAXONE SODIUM 2 GM in D5W 5% 50 ML IV SCH (11:20)
[2022-01-17 13:00] VITALS: BP 143/68
[2022-01-17] MEDS: VANCOMYCIN 1GM/250ML 250 ML IV SCH (13:59)
[2022-01-17 17:00] VITALS: BP 141/62
[2022-01-17] MEDS: OXYCODONE W/ ACETAMINOPHEN 5/325MG TABLET PO PRN (18:01)
[2022-01-17] MEDS: PRAVASTATIN SODIUM 20 MG TAB PO SCH (21:08)
[2022-01-17 22:15] VITALS: BP 133/63
[2022-01-18] MEDS: VANCOMYCIN 1GM/250ML 250 ML IV SCH ×2 (01:44→18:24)
[2022-01-18] MEDS: OXYCODONE W/ ACETAMINOPHEN 5/325MG TABLET PO PRN ×3 (01:51→18:25)
[2022-01-18 05:26] LABS: Basophils # (auto) 0.1 10 ^3/uL (0-0.2); Eosinophils # (auto) 0.6 10 ^3/uL (0-0.8); Hemoglobin 10.6 g/dL (12.2-16.2); Nucleated Red Blood Cells % 0.1 %
[2022-01-18 05:31] LABS: Basophils % (auto) 0.5 % (0.0-2.0); Eosinophils % (auto) 4.4 % (0.0-7.0); Lymphocytes # (auto) 4.9 10 ^3/uL (0.4-5.4); Lymphocytes % (auto) 34.1 % (10.0-50.0); Mean Corpuscular Volume 84.4 fL (80.0-100.0); Monocytes # (auto) 1.6 10 ^3/uL (0-1.3); Monocytes % (auto) 11.2 % (0.0-12.0); Neutrophils # (auto) 7.1 10 ^3/uL (1.6-8.6); Neutrophils % (auto) 49.8 % (37.0-80.0); Red Blood Cells 3.91 10^6/uL (4.0-5.20); Red Cell Distribution Width 15.3 % (11.8-14.3); White Blood Cell 14.2 10^3/uL (4.4-10.8)
[2022-01-18 05:35] VITALS: BP 125/48
[2022-01-18 06:25] LABS: Potassium 3.2 mmol/L (3.5-5.1)
[2022-01-18 06:26] LABS: BUN/Creatinine Ratio 15.2
[2022-01-18] MEDS: CARVEDILOL 3.125 MG TAB PO SCH ×2 (08:56→21:30)
[2022-01-18] MEDS: DOCUSATE SOD 100 MG CAP PO SCH ×2 (08:57→21:31)
[2022-01-18] MEDS: rifAMPin 300 MG CAP PO SCH (08:57)
[2022-01-18] MEDS: FUROSEMIDE 20 MG TAB PO SCH (08:57)
[2022-01-18] MEDS: POTASSIUM CHL 20 Meq TABLET PO SCH (08:58)
[2022-01-18] MEDS: GABAPENTIN 400 MG CAP PO SCH ×2 (08:58→21:29)
[2022-01-18] MEDS: LIDOCAINE 5% TOPICAL PATCH TOP SCH (08:59)
[2022-01-18 09:00] VITALS: BP 105/69
[2022-01-18] MEDS: ENOXAPARIN SOD 40 MG/0.4 ML SYRINGE SC SCH (09:11)
[2022-01-18] MEDS ORDERED: POTASSIUM CHL 20MEQ/100ML 100 ML IV SCH ×2 (10:30→23:15)
[2022-01-18] MEDS ORDERED: POTASSIUM EFFERVESENT TAB 25 MEQ GT ONE (11:00)
[2022-01-18] MEDS: SODIUM CHLOR 0.9% PF (SALINE LOCK) 10ML VIAL/SYR IV SCH ×2 (12:42→21:31)
[2022-01-18] MEDS: CEFTRIAXONE SODIUM 2 GM in D5W 5% 50 ML IV SCH (12:44)
[2022-01-18 13:00] VITALS: BP 122/53
[2022-01-18] MEDS ORDERED: FLUCONAZOLE 100 MG TAB PO ONE (15:45)
[2022-01-18 17:00] VITALS: BP 123/58
[2022-01-18] MEDS: PRAVASTATIN SODIUM 20 MG TAB PO SCH (21:36)
[2022-01-18 21:52] VITALS: BP_SYST 127; BP_SYST 136; BP_DIAS 50; BP_DIAS 68
[2022-01-19] MEDS: OXYCODONE W/ ACETAMINOPHEN 5/325MG TABLET PO PRN ×2 (03:22→11:02)
[2022-01-19] MEDS: VANCOMYCIN 1GM/250ML 250 ML IV SCH (05:19)
[2022-01-19 05:40] VITALS: BP_SYST 132; BP_SYST 144; BP_DIAS 48; BP_DIAS 62
[2022-01-19 06:19] LABS: Basophils # (auto) 0.1 10 ^3/uL (0-0.2); Basophils % (auto) 0.9 % (0.0-2.0); Eosinophils # (auto) 0.6 10 ^3/uL (0-0.8); Eosinophils % (auto) 6.3 % (0.0-7.0); Hematocrit 27.3 % (36.0-46.0); Hemoglobin 9.2 g/dL (12.2-16.2); Lymphocytes # (auto) 2.9 10 ^3/uL (0.4-5.4); Lymphocytes % (auto) 29.4 % (10.0-50.0); Mean Corpuscular Hemoglobin 28.2 pg (28.0-32.0); Mean Corpuscular Hgb Conc. 33.7 g/dL (32.0-36.0); Mean Corpuscular Volume 83.7 fL (80.0-100.0); Monocytes # (auto) 1.2 10 ^3/uL (0-1.3); Monocytes % (auto) 11.8 % (0.0-12.0); Neutrophils # (auto) 5.1 10 ^3/uL (1.6-8.6); Neutrophils % (auto) 51.6 % (37.0-80.0); Nucleated Red Blood Cells % 0.1 %; Red Blood Cells 3.26 10^6/uL (4.0-5.20); Red Cell Distribution Width 15.4 % (11.8-14.3)
[2022-01-19 06:40] LABS: Calcium 9.6 mg/dL (8.5-10.1); Potassium 3.5 mmol/L (3.5-5.1)
[2022-01-19 09:00] VITALS: BP 142/54
[2022-01-19] MEDS ORDERED: FLUCONAZOLE 100 MG TAB PO SCH (10:00)
[2022-01-19] MEDS ORDERED: FLUC200T50 PO (11:09)
[2022-01-19] MEDS ORDERED: RIFA300C3 PO (11:10)
[2022-01-19] MEDS: HYDROcodone-ACET 10/325MG TAB PO PRN (12:31)
[2022-01-19] MEDS: SODIUM CHLOR 0.9% PF (SALINE LOCK) 10ML VIAL/SYR IV SCH (12:33)
[2022-01-19] MEDS: CEFTRIAXONE SODIUM 2 GM in D5W 5% 50 ML IV SCH (12:33)
[2022-01-19] MEDS: DOCUSATE SOD 100 MG CAP PO SCH (12:34)
[2022-01-19] MEDS: rifAMPin 300 MG CAP PO SCH (12:34)
[2022-01-19] MEDS: POTASSIUM CHL 20 Meq TABLET PO SCH (12:35)
[2022-01-19] MEDS: CARVEDILOL 3.125 MG TAB PO SCH (12:35)
[2022-01-19] MEDS: ENOXAPARIN SOD 40 MG/0.4 ML SYRINGE SC SCH (12:36)
[2022-01-19] MEDS: LIDOCAINE 5% TOPICAL PATCH TOP SCH (12:36)
[2022-01-19] MEDS: FUROSEMIDE 20 MG TAB PO SCH (12:36)
[2022-01-19] MEDS: GABAPENTIN 400 MG CAP PO SCH (12:36)
[2022-01-19 13:00] VITALS: BP 134/60
[2022-01-19 15:12] VITALS: BP 134/60
== END 2022-01-19 17:05 | disposition home health service (06) | DRG 486 ==
LOC: ER 11:45 → OVERFLOW 18:38 → EAST 23:28
PROVIDERS: ADMIT Internal Medicine; ATTEND Internal Medicine Nephrology
PROC: 0SPD09Z Removal of Liner from Left Knee Joint, Open Approach (ICD-10-PCS; 2022-01-12)
PROC: 3E0U029 Introduction of Other Anti-infective into Joints, Open Approach (ICD-10-PCS; 2022-01-12)
PROC: 0SUW09Z Supplement Left Knee Joint, Tibial Surface with Liner, Open Approach (ICD-10-PCS; 2022-01-12)
PROC: 0SBC0ZZ Excision of Right Knee Joint, Open Approach (ICD-10-PCS; principal; 2022-01-12 12:03)
PROC: 02HV33Z Insertion of Infusion Device into Superior Vena Cava, Percutaneous Approach (ICD-10-PCS; 2022-01-14)
PROC: B548ZZA Ultrasonography of Superior Vena Cava, Guidance (ICD-10-PCS; 2022-01-14)
DX: M00.9 Pyogenic arthritis, unspecified (principal); L02.416 Cutaneous abscess of left lower limb; Z20.822 Contact with and (suspected) exposure to COVID-19; B95.8 Unspecified staphylococcus as the cause of diseases classified elsewhere; M71.062 Abscess of bursa, left knee; Z96.652 Presence of left artificial knee joint; I10 Essential (primary) hypertension; E78.5 Hyperlipidemia, unspecified
CPT/HCPCS: 36415; 36569; 71045; 73562; 73701; 80048; 80053; 80069; 80202; 81001; 82565; 82962; 83605; 85025; 85610; 85652; 85730; 86141; 87040; 87070; 87205; 97110; 97116; 97163; 97530; G0378; J0690; J0696; J1100; J2250; J2405; J3480; J7060

== ENCOUNTER → 2022-08-16 | Outpatient (CLI) | payer MEDICARE ==
[~2022-08-16] MED LIST changes: +FLUC200T50 PO; -INDO25CA17 PO; +RIFA300C3 PO
== END | disposition home or self-care (01) ==
LOC: Rad HDHVI 12:42
PROVIDERS: ATTEND Internal Medicine Cardiovascular Disease
DX: R07.89 Other chest pain (principal); E78.5 Hyperlipidemia, unspecified
CPT/HCPCS: 93880

== ENCOUNTER → 2022-11-15 | Outpatient (CLI) | payer MEDICARE ==
[~2022-11-15] MED LIST changes: -MULT-512 PO; +OMEG-20 PO; -OMEG100078 PO; -RIFA300C3 PO; +RIFA300C58 PO; +[UNRECOGNIZED DRUG - CODE] PO
== END | disposition home or self-care (01) ==
LOC: Rad HDHVI 09:39
PROVIDERS: ATTEND Internal Medicine Cardiovascular Disease
DX: I08.1 Rheumatic disorders of both mitral and tricuspid valves (principal); R07.89 Other chest pain; R06.02 Shortness of breath
CPT/HCPCS: 93306

== ENCOUNTER → 2023-04-17 | Outpatient (CLI) | payer MEDICARE ==
[~2023-04-17] MED LIST changes: +INDO-35 PO
[2023-04-17 09:03] VITALS: BP 145/68; PULSE 71; RESP 16; O2SAT 93
[2023-04-17 09:22] VITALS: BP 140/75; PULSE 68; RESP 16; O2SAT 93
== END | disposition home or self-care (01) ==
LOC: CHF HDHVI 08:54
PROVIDERS: ATTEND Internal Medicine Cardiovascular Disease
DX: Z01.818 Encounter for other preprocedural examination (principal); Z48.02 Encounter for removal of sutures; R94.31 Abnormal electrocardiogram [ECG] [EKG]; I49.3 Ventricular premature depolarization
CPT/HCPCS: 93005; G0463

== ENCOUNTER 2023-04-20 07:03 | Day surgery (SDC) | payer MEDICARE ==
[2023-04-17 10:52] LABS: Basophils # (auto) 0.1 10 ^3/uL (0-0.2); Eosinophils # (auto) 0.2 10 ^3/uL (0-0.8); Hemoglobin 11.9 g/dL (12.2-16.2); Lymphocytes # (auto) 3.9 10 ^3/uL (0.4-5.4); Mean Corpuscular Hemoglobin 28.6 pg (28.0-32.0); Neutrophils # (auto) 6.3 10 ^3/uL (1.6-8.6); Red Cell Distribution Width 15.4 % (11.8-14.3)
[2023-04-17 10:53] LABS: Basophils % (auto) 0.8 % (0.0-2.0); Eosinophils % (auto) 1.7 % (0.0-7.0); Hematocrit 36.2 % (36.0-46.0); Lymphocytes % (auto) 33.5 % (10.0-50.0); Mean Corpuscular Volume 86.8 fL (80.0-100.0); Monocytes # (auto) 1.1 10 ^3/uL (0-1.3); Monocytes % (auto) 9.7 % (0.0-12.0); Neutrophils % (auto) 54.3 % (37.0-80.0); Red Blood Cells 4.17 10^6/uL (4.0-5.20); White Blood Cell 11.6 10^3/uL (4.4-10.8)
[2023-04-17 11:07] LABS: Partial Thromboplastin Time 29.9 SEC (24.5-34.5); Prothrombin Time 10.5 sec (9.3-11.8)
[2023-04-17 11:29] LABS: Alanine Aminotransferase 22 U/L (7-40); Albumin 4.7 g/dL (3.2-4.8); Alkaline Phosphatase 95 U/L (46-116); Anion Gap 8 (5-15); Aspartate Aminotransferase 23 U/L (13-40); BUN/Creatinine Ratio 14.5 (10.0-20.0); Blood Urea Nitrogen 12 mg/dL (9-23); Carbon Dioxide 32 mmol/L (20-30); Chloride 96 mmol/L (98-107); Glucose 87 mg/dL (74-106); Potassium 4.7 mmol/L (3.5-5.1); Sodium 136 mmol/L (136-145)
[2023-04-17 11:30] LABS: Bilirubin, Total 0.3 mg/dL (0.2-1.0); Total Protein 7.7 g/dL (5.7-8.2)
[2023-04-20] VITALS (8 sets, daily range): BP systolic 138–161; BP diastolic 58–86; PULSE 60–62; RESP 12–14; O2SAT 88–95
[~2023-04-20] VITALS: Ht 162.6 cm; Wt 90.7 kg
[2023-04-20] MEDS ORDERED: IODIXANOL 320MG/ML 100ML BTL IV ONE (08:06)
[2023-04-20] MEDS ORDERED: LIDOCAINE 2%HCL (LOCAL ANESTH.) INJ 20ML MDV ONE ×2 (08:06→08:24)
[2023-04-20] MEDS ORDERED: fentaNYL CITRATE 100 MCG/2 ML VL ONE (08:13)
[2023-04-20] MEDS ORDERED: MIDAZOLAM HCL 2MG/2ML 2ml VIAL (1mg/ml) ONE (08:13)
[2023-04-20] MEDS ORDERED: VANCOMYCIN 1GM/250ML 250 ML IV ONE (08:16)
[2023-04-20] MEDS ORDERED: VANCOMYCIN HCL 1000 MG VL ONE ×2 (08:16→08:24)
[2023-04-20] MEDS ORDERED: HYDROmorphone HCL 2 MG/ML VL/or syr ONE (08:53)
[2023-04-20] MEDS ORDERED: ceFAZolin 2 GM/D5W100ml 100 ML IV ONE (09:15)
[2023-04-20] MEDS ORDERED: ONDANSETRON HCL 4 MG/2 ML VIAL IV ONE (10:30)
== END 2023-04-20 11:41 | disposition home or self-care (01) ==
LOC: CATH 07:03
PROVIDERS: ATTEND Internal Medicine Cardiovascular Disease
DX: T82.111A Breakdown (mechanical) of cardiac pulse generator (battery), initial encounter (principal); I42.0 Dilated cardiomyopathy; I10 Essential (primary) hypertension; Z79.899 Other long term (current) drug therapy; R07.89 Other chest pain
CPT/HCPCS: 33264; 36415; 80053; 85025; 85610; 85730; C1882; J1170; J1644; J2250; J2405; J3010; J3370; Q9967; 99152; 99153

== ENCOUNTER → 2024-04-04 | Outpatient (CLI) | payer MEDICARE ==
[~2024-04-04] MED LIST changes: -FLUC200T50 PO; +POTA-36 PO; -POTA10TA51 PO; -RIFA300C58 PO
== END | disposition home or self-care (01) ==
LOC: Rad HDHVI 09:47
PROVIDERS: ATTEND Internal Medicine Cardiovascular Disease
DX: I11.0 Hypertensive heart disease with heart failure (principal); I50.23 Acute on chronic systolic (congestive) heart failure
CPT/HCPCS: 93306

== ENCOUNTER 2024-07-25 07:26 | Day surgery (SDC) | payer MEDICARE ==
[2024-07-23 12:32] LABS: Urine Bacteria None Seen /hpf (None Seen)
[2024-07-23 12:42] LABS: Basophils # (auto) 0.1 10 ^3/uL (0-0.2); Basophils % (auto) 0.9 % (0.0-2.0); Eosinophils # (auto) 0.2 10 ^3/uL (0-0.8); Eosinophils % (auto) 2.1 % (0.0-7.0); Hematocrit 37.2 % (36.0-46.0); Hemoglobin 12.7 g/dL (12.2-16.2); Lymphocytes # (auto) 3.6 10 ^3/uL (0.4-5.4); Lymphocytes % (auto) 41.3 % (10.0-50.0); Mean Corpuscular Hgb Conc. 34.3 g/dL (32.0-36.0); Mean Corpuscular Volume 93.4 fL (80.0-100.0); Monocytes # (auto) 0.8 10 ^3/uL (0-1.3); Neutrophils # (auto) 4.1 10 ^3/uL (1.6-8.6); Neutrophils % (auto) 46.7 % (37.0-80.0); Platelet Count (auto) 331 10^3/uL (140-450); Red Blood Cells 3.98 10^6/uL (4.0-5.20); White Blood Cell 8.7 10^3/uL (4.4-10.8)
[2024-07-23 13:03] LABS: Urine Blood Negative /uL (Negative); Urine Clarity Clear (Clear); Urine Color Light-Yellow (Yellow); Urine Protein, UAD Negative (Negative); Urine Specific Gravity 1.008 (1.001-1.035); Urine Squamous Epithelial Cell FEW /hpf (<5); Urine Urobilinogen Normal (Negative); Urine WBC 1 /HPF (0-5)
[2024-07-23 13:07] LABS: Alanine Aminotransferase 22 U/L (7-40); Alkaline Phosphatase 59 U/L (46-116); Anion Gap 9 (5-15); Aspartate Aminotransferase 25 U/L (13-40); BUN/Creatinine Ratio 17.9 (10.0-20.0); Blood Urea Nitrogen 19 mg/dL (9-23); Carbon Dioxide 31 mmol/L (20-31); Chloride 99 mmol/L (98-107); Glucose 99 mg/dL (74-106); Potassium 4.7 mmol/L (3.5-5.1); Sodium 139 mmol/L (136-145); Total Protein 7.6 g/dL (5.7-8.2)
[2024-07-23 13:08] LABS: Bilirubin, Total 0.3 mg/dL (0.2-1.0); INR 1.02 (0.9-1.15); Prothrombin Time 10.8 sec (9.3-11.8)
[2024-07-23 13:09] LABS: Calcium 11.1 mg/dL (8.7-10.4)
[2024-07-23 13:10] LABS: Albumin 4.9 g/dL (3.2-4.8)
[~2024-07-25] VITALS: Ht 162.6 cm; Wt 79.4 kg
[~2024-07-25 07:26] MED LIST changes: +LISI2.5T47 PO
[2024-07-25] MEDS ORDERED: PROPOFOL 10 MG/ML 20 ML IV ONE (09:03)
--- NOTE | 2024-07-25 09:06 | DVHHP2 ---
GI H&P Pre-Op Assessment Date: 07/25/24 Chief complaint: diarrhea HPI: per clinic note Past medical history: per clinic note Past surgical history: per clinic note Family history: per clinic note Physical exam: General: NAD, AAOX3 HEENT: PERRL, no scleral icterus, normal hearing, gums without lesions or bleeding, oropharynx clear without erythema or exudate. Neck: Supple without enlargement of the thyroid, or lymphadenopathy. Chest: Normal size and shape, no tenderness, lung de jesus clear to auscultation and percussion, nonlabored breathing. Heart: RRR, no murmur Abdomen: non-distended, no tenderness to palpation, +BS, no hepatosplenomegaly Extremities: no edema Neurological: CN II-XII intact, sensation intact in all extremities, 5+ strength in all extremities Skin: No rashes, No jaundice Assessment: - diarrhea Plan: - Colonoscopy - Risks (bleeding, infection, perforation, reaction to sedation medications and cardiopulmonary arrest) and benefit of the procedure were explained to patient. Patient agrees to undergo the procedure. ARABELLA MAHAN MD Jul 25, 2024 09:06
[2024-07-25 09:28] VITALS: TEMP 97.2
--- NOTE | 2024-07-25 09:30 | DVHOP2 ---
Operative Report DATE OF OPERATION: 07/25/24 PROCEDURE: Colonoscopy. PREOPERATIVE INDICATION: The patient is a 68 -year-old female with history of partial colectomy undergoing colonoscopy for diarrhea and elevated fecal calprotectin level. POSTOPERATIVE DIAGNOSES: 1. Normal terminal ileum 2. Anastomosis at 20 cm from the anal verge. 3. Normal colonic mucosa. Random colon biopsy obtained with cold biopsy to evaluate for microscopic colitis. 4. Internal hemorrhoids PROCEDURE PERFORMED BY: Naseem Christensen M.D. SCOPE: Olympus videocolonoscope. ASA CLASS: 3 PREOPERATIVE MEDICATIONS: MAC with Dr James PROCEDURE IN DETAIL: After obtaining an informed consent, the patient was placed on left lateral decubitus position. She was then sedated with the above medications. A rectal examination was performed that was normal. The colonoscope was then passed through the anus into the rectosigmoid and through the transverse, and ascending colon up to the cecum with visualization of the appendiceal orifice, base of the cecum and the ileocecal valve. The colon scope was advanced into the terminal ileum. The terminal ileum was normal in appearance. The colonic mucosa was normal in appearance. Random colon biopsies were obtained to evaluate for microscopic colitis. There was a normal appearing anastomosis at 20 cm from the anal verge. There were internal hemorrhoids. The colonoscope was then withdrawn. The patient tolerated the procedure well without difficulty. WITHDRAWAL TIME: 5 minutes QUALITY OF THE PREP: [place] Bowel Prep score: 7 COMPLICATIONS : None SPECIMENS: Random colon biopsies DISPOSITION: D/C to home PLAN: 1. Await biopsy results NASEEM CHRISTENSEN MD Jul 25, 2024 09:30
--- NOTE | 2024-07-25 09:31 | DVHDS2 ---
Physician Discharge Progress N Final Diagnosis: Normal colonic mucosa, normal terminal ileum, internal hemorrhoids Operations or Procedures: Operations or Procedures Colonoscopy with biopsy Condition on Discharge: Good Disposition: Home Discharge Instructions: Diet: Regular Activity: No Restrictions, As Tolerated Medications: Resume with previous home medications Follow Up Care: Discharge Statement: "Patient was advised to return to the ER or call 911 if any headaches, dizziness, shortness of breath, chest pain, abdominal pain, bleeding, fevers, or worsening of medical condition. Patient was counseled about treatment plan, medications, possible side effects, patientverbalized understanding. All questions were answered to the best of my ability. This discharge took greater then 30 minutes in planning, reviewing documentation, counseling the patient, and discussing with other team members." ARABELLA MAHAN MD Jul 25, 2024 09:31
[2024-07-25 09:50] VITALS: BP 110/55; PULSE 80; RESP 15
[2024-07-25 09:58] VITALS: O2SAT 95
== END 2024-07-25 10:00 | disposition home or self-care (01) ==
LOC: GI 07:26
PROVIDERS: ATTEND Internal Medicine Gastroenterology
DX: K52.9 Noninfective gastroenteritis and colitis, unspecified (principal); R19.5 Other fecal abnormalities; K63.89 Other specified diseases of intestine; K64.8 Other hemorrhoids; I25.10 Atherosclerotic heart disease of native coronary artery without angina pectoris; I11.0 Hypertensive heart disease with heart failure; I50.9 Heart failure, unspecified; I42.9 Cardiomyopathy, unspecified; Z79.899 Other long term (current) drug therapy; Z95.810 Presence of automatic (implantable) cardiac defibrillator; Z98.890 Other specified postprocedural states; Z88.2 Allergy status to sulfonamides
CPT/HCPCS: 36415; 45380; 80053; 81001; 85025; 85610; 85730; 88305; 88342; J2704; J7030

== ENCOUNTER 2024-12-12 10:23 | Outpatient (CLI) | payer MEDICARE | END 2024-12-12 17:00 | disposition home or self-care (01) | LOC: Rad HDHVI 10:23 | PROVIDERS: ATTEND Internal Medicine Cardiovascular Disease | DX: Z01.810 Encounter for preprocedural cardiovascular examination (principal); I34.0 Nonrheumatic mitral (valve) insufficiency; I51.7 Cardiomegaly | CPT/HCPCS: 93306 ==

== ENCOUNTER 2024-12-17 08:54 | Outpatient (CLI) | payer MEDICARE ==
[~2024-12-17] VITALS: Ht 162.6 cm; Wt 83.0 kg
[2024-12-17] MEDS ORDERED: ADENOSINE 90 MG/30 ML INJ IV ONE (09:27)
[2024-12-17] MEDS ORDERED: ADENOSINE 70 MG in GIVE UN-DILUTED 0 ML IV ONE (10:00)
== END 2024-12-17 17:00 | disposition home or self-care (01) ==
LOC: Rad HDHVI 08:54
PROVIDERS: ATTEND Internal Medicine Cardiovascular Disease
DX: Z01.810 Encounter for preprocedural cardiovascular examination (principal); I49.3 Ventricular premature depolarization; I11.0 Hypertensive heart disease with heart failure; I50.43 Acute on chronic combined systolic (congestive) and diastolic (congestive) heart failure; I25.10 Atherosclerotic heart disease of native coronary artery without angina pectoris; I42.0 Dilated cardiomyopathy; E78.00 Pure hypercholesterolemia, unspecified; R06.02 Shortness of breath; Z82.49 Family history of ischemic heart disease and other diseases of the circulatory system; Z95.810 Presence of automatic (implantable) cardiac defibrillator
CPT/HCPCS: 78452; 93017; A9500; J0153